=== PATIENT | female | born 1965 | race Caucasian/White ===

== ENCOUNTER → 2017-09-08 13:21 | Outpatient (CLI) | payer BC, SELFPAY ==
[2017-09-08 15:19] LABS: Basophils # 0.1 K/mm3 (0-0.2); Basophils % 0.7 % (0.1-2.0); Eosinophils # 0.5 K/mm3 (0.0-0.4); Eosinophils % 5.2 % (0.1-12.0); Hematocrit 38.1 % (37.0-47.0); Hemoglobin 12.6 g/dL (12.2-16.2); Lymphocytes # 3.9 K/mm3 (0.7-4.5); Lymphocytes % 43.5 K/mm3 (10-50); Mean Corpuscular Hemoglobin 32.3 pg (27.0-31.2); Mean Corpuscular Volume 97.8 fl (81-99); Mean Platelet Volume 8.4 fl (7.4-10.4); Monocytes # 0.5 K/mm3 (0.1-1.0); Neutrophils # 4.1 K/mm3 (1.8-7.8); Neutrophils % 45.6 % (37.0-80.0); Platelet Count 358 K/mm3 (142-424); Red Cell Distribution Width 12.4 % (11.5-17.5)
[2017-09-08 17:26] LABS: Alanine Aminotransferase 33 U/L (12-78); Albumin Level 3.9 gm/dL (3.4-5.0); Albumin/Globulin Ratio 1.1 (1.1-1.8); Alkaline Phosphatase 101 U/L (46-116); Anion Gap 14.1 mEq/L (5-15); Aspartate Amino Transferase 25 U/L (15-37); Bilirubin,Total 0.1 mg/dL (0.2-1.0); Blood Urea Nitrogen 20 mg/dL (7-18); Carbon Dioxide 26 mmol/L (21.0-32.0); Chloride 108 mmol/L (98-107); Creatinine,Serum 0.76 mg/dL (0.55-1.02); Estimated Glomerular Filt Rate 80 ml/min (>60); Ferritin 53 ng/mL (8-388); GFR (African American) 97 ML/MIN (>60); Globulin 3.7 gm/dl (1.3-3.2); Glucose 91 mg/dL (74-106); Potassium 5.1 mmoL/L (3.5-5.1); Sodium 143 mmol/L (136-145); Total Protein,Serum 7.6 gm/dL (6.4-8.2)
[2017-09-09 09:17] LABS: Iron 112 ug/dL (27-159); Iron Saturation 27 % (15-55); UIBC 301 ug/dL (131-425)
[2017-09-09 14:35] LABS: Amphetamine/Metha Screen,Urine Negative ng/mL (<1000); Barbiturates Screen,Urine Negative ng/mL (<200); Benzodiazepines Screen,Urine Negative ng/mL (200); Cannabinoid Screen,Urine Negative ng/mL (<50); Cocaine Screen,Urine Negative ng/g (<300); Methadone Screen,Urine Negative ng/mL (<300); Phencyclidine Screen,Urine Negative ng/mL (<25)
[2017-09-09 14:37] LABS: Opiate Screen,Urine Positive ng/mL (<300)
[2017-09-10 17:16] LABS: Vitamin B12 271 pg/mL (232-1245)
[2017-09-15 11:13] LABS: Codeine Negative (Cutoff=100); Hydrocodone Positive (.); Hydromorphone Positive (.); Morphine Negative (Cutoff=100)
[2017-09-16 12:13] LABS: Opiates Positive (.)
== END ==
PROVIDERS: PCP Emergency Medicine; Referring Provider Anesthesiology; Visit Provider Internal Medicine
DX: D75.89 Other specified diseases of blood and blood-forming organs (principal)
CPT/HCPCS: 36415; 80053; 80305; 80361; 82607; 82728; 82746; 83550; 85025; G0480

== ENCOUNTER → 2017-09-28 13:23 | Outpatient (CLI) | payer BC, SELFPAY ==
[2017-09-28 15:14] LABS: Amphetamine/Metha Screen,Urine Negative ng/mL (<1000); Barbiturates Screen,Urine Negative ng/mL (<200); Benzodiazepines Screen,Urine Negative ng/mL (200); Cannabinoid Screen,Urine Negative ng/mL (<50); Cocaine Screen,Urine Negative ng/g (<300); Methadone Screen,Urine Negative ng/mL (<300); Opiate Screen,Urine Positive ng/mL (<300); Phencyclidine Screen,Urine Negative ng/mL (<25)
[2017-10-10 23:07] LABS: Codeine Negative (Cutoff=100); Hydrocodone Positive (.); Hydromorphone Positive (.); Morphine Negative (Cutoff=100)
[2017-10-11 02:16] LABS: Opiates Positive (.)
== END ==
PROVIDERS: PCP Emergency Medicine; Visit Provider Anesthesiology
DX: Z79.899 Other long term (current) drug therapy (principal)
CPT/HCPCS: 80305; 80361; G0480

== ENCOUNTER → 2017-10-26 11:25 | Outpatient (POV) | payer BC, SELFPAY ==
[2017-10-26 11:39] VITALS: BP 133/79; PULSE 91; RESP 18; TEMP 36.7; O2SAT 95; BMI 28.1
--- NOTE | 2017-10-26 11:58 | HMH.PAINSOAP ---
[facility] Pain Management SOAP Note Subjective:: This patient is a pleasant 52-year-old white female who is been treated in our pain clinic for quite some time for chronic pain secondary to degenerative disc disease of the lumbar spine with lumbar radiculopathy and postlaminectomy syndrome. Patient is currently being medically managed with [place] 10 mg 1 p.o. 3 times daily. She is also taking gabapentin 400 mg 1 p.o. 3 times daily. She is also on diazepam 5 mg as needed. Patient is still working. Patient reports her pain a 10 today. She describes the pain as aching and constant. Medication decreases her pain up to 75%. Patient denies any side effects to this medication. Patient's BABITA [id number] reviewed and appropriate. Patient's UDS was appropriate in the past. ROS General: no recent weight change, no fever, no sleep disturbances Respiratory: no cough, no shortness of air, no recurring pulmonary infections Cardiovascular/Peripheral Vascular: No chest pain, No palpitations, no edema, no shortness of breath. Gastrointestinal: no incontinence, normal bowel movements reported Genitourinary: no incontinence Musculoskeletal: Back pain Psychiatric: normal mood/ affect, anxiety Neurological: [denies weakness in extremities], [denies balance issues] Objective:: Physical Exam General: Alert and oriented x3, no acute distress, pleasant and cooperative, [on room air] Lungs: Resps E/U, Symmetrical chest expansion, Eyes: PERRL Musculoskeletal: Flexion and extension of lumbar spine somewhat guarded secondary to pain, deep tendon reflexes normal, strength in upper and lower extremities [5/5], normal gait noted Neurological: speech clear, shrink pit supervisor equal, no gross sensory deficits Assessment:: Degenerative disc disease of the lumbar spine, lumbar radiculopathy, post laminectomy syndrome Plan:: We will refill this patient's medication given the efficacy of the current regimen. We will refill her [place] 10 mg 1 p.o. 3 times daily and give her 2 months worth of prescriptions. Both her [place] and her urine drug screen have been reviewed and appropriate. Dr. Quiñonez has reviewed her chart and agrees with this. We will see this patient back in 3 months. Patient has been prescribed a controlled substance after being counseled on the medication, medication safety, and possible side effects. BABITA report has been obtained and reviewed prior to prescription and found to be appropriate. Opioid contract was reviewed and signed by the patient, and that they have agreed to all of the terms set forth by our compliance program. This note was dictated using voice recognition software and may contain errors or omissions
--- NOTE | 2017-10-26 12:02 | P.CONS_ITS ---
[facility] Pain Management SOAP Note Subjective:: This patient is a pleasant 52-year-old white female who is been treated in our pain clinic for quite some time for chronic pain secondary to degenerative disc disease of the lumbar spine with lumbar radiculopathy and postlaminectomy syndrome. Patient is currently being medically managed with [place] 10 mg 1 p.o. 3 times daily. She is also taking gabapentin 400 mg 1 p.o. 3 times daily. She is also on diazepam 5 mg as needed. Patient is still working. Patient reports her pain a 10 today. She describes the pain as aching and constant. Medication decreases her pain up to 75%. Patient denies any side effects to this medication. Patient's BABITA [id number] reviewed and appropriate. Patient' s UDS was appropriate in the past. ROS General: no recent weight change, no fever, no sleep disturbances Respiratory: no cough, no shortness of air, no recurring pulmonary infections Cardiovascular/Peripheral Vascular: No chest pain, No palpitations, no edema, no shortness of breath. Gastrointestinal: no incontinence, normal bowel movements reported Genitourinary: no incontinence Musculoskeletal: Back pain Psychiatric: normal mood/ affect, anxiety Neurological: [denies weakness in extremities], [denies balance issues] Objective:: Physical Exam General: Alert and oriented x3, no acute distress, pleasant and cooperative, [ on room air] Lungs: Resps E/U, Symmetrical chest expansion, Eyes: PERRL Musculoskeletal: Flexion and extension of lumbar spine somewhat guarded secondary to pain, deep tendon reflexes normal, strength in upper and lower extremities [5/5], normal gait noted Neurological: speech clear, preparation center coordinator equal, no gross sensory deficits Assessment:: Degenerative disc disease of the lumbar spine, lumbar radiculopathy, post laminectomy syndrome Plan:: We will refill this patient's medication given the efficacy of the current regimen. We will refill her [place] 10 mg 1 p.o. 3 times daily and give her 2 months worth of prescriptions. Both her [place] and her urine drug screen have been reviewed and appropriate. Dr. Quiñonez has reviewed her chart and agrees with this. We will see this patient back in 3 months. Patient has been prescribed a controlled substance after being counseled on the medication, medication safety, and possible side effects. BABITA report has been obtained and reviewed prior to prescription and found to be appropriate. Opioid contract was reviewed and signed by the patient, and that they have agreed to all of the terms set forth by our compliance program. This note was dictated using voice recognition software and may contain errors or omissions
--- NOTE | 2017-10-27 11:50 | PC.PHONENOTE ---
CALLED IN RX FOR GABAPENTIN 400MG TID WITH 2 REFILLS TO [facility]
== END ==
PROVIDERS: Family Provider Emergency Medicine; PCP Emergency Medicine; Visit Provider Clinical Nurse Specialist Family Health
DX: M54.16 Radiculopathy, lumbar region (principal)
CPT/HCPCS: 99212

== ENCOUNTER → 2018-01-04 10:58 | Outpatient (POV) | payer BC, SELFPAY ==
--- NOTE | 2018-01-04 11:49 | HMH.PAINSOAP ---
[facility] Pain Management SOAP Note Subjective:: She is a pleasant 52-year-old white female who we are treating in our pain clinic for chronic pain secondary to degenerative disc disease of the lumbar spine with lumbar radiculopathy and postlaminectomy syndrome. Patient is currently being medically managed with [place] 10 mg 1 p.o. 3 times daily and gabapentin 400 mg 1 p.o. 3 times daily. Patient is still working. Patient reports her pain a 6 out of 10 today. She describes it as aching constant. She states that the medication decreases her pain up to 80%. Patient denies any side effects from medication. Patient's BABITA #[id number] reviewed and appropriate. Patient's UDS is appropriate in the past. ROS General: no recent weight change, no fever, no sleep disturbances Respiratory: no cough, no shortness of air, no recurring pulmonary infections Cardiovascular/Peripheral Vascular: No chest pain, No palpitations, no edema, no shortness of breath. Gastrointestinal: no incontinence, normal bowel movements reported Genitourinary: no incontinence Musculoskeletal: Back pain Psychiatric: normal mood/ affect Neurological: [denies weakness in extremities], [denies balance issues] Objective:: Physical Exam General: Alert and oriented x3, no acute distress, pleasant and cooperative, [on room air] Lungs: Resps E/U, Symmetrical chest expansion, Eyes: PERRL Musculoskeletal: Flexion and extension of lumbar spine somewhat guarded secondary to pain, deep tendon reflexes normal, strength in upper and lower extremities [5/5], normal gait noted Neurological: speech clear, engraver letter equal, no gross sensory deficits Assessment:: Degenerative disc disease of the lumbar spine with lumbar radiculopathy and postlaminectomy syndrome Plan:: We will refill the patient's medication given the efficacy of the current regimen. We will refill her [place] 10 mg 1 p.o. 3 times daily and give HER-2 months worth of the prescription. Both her [place] and urine drug screen have been reviewed and appropriate. I will see her back in 3 months she can supervisor opening and picking her third month in the interim. Dr. Quiñonez has reviewed this chart and agrees with this plan of care. Patient has been prescribed a controlled substance after being counseled on the medication, medication safety, and possible side effects. BABITA report has been obtained and reviewed prior to prescription and found to be appropriate. Opioid contract was reviewed and signed by the patient, and that they have agreed to all of the terms set forth by our compliance program. This note was dictated using voice recognition software and may contain errors or omissions
--- NOTE | 2018-01-04 11:52 | P.CONS_ITS ---
[facility] Pain Management SOAP Note Subjective:: She is a pleasant 52-year-old white female who we are treating in our pain clinic for chronic pain secondary to degenerative disc disease of the lumbar spine with lumbar radiculopathy and postlaminectomy syndrome. Patient is currently being medically managed with [place] 10 mg 1 p.o. 3 times daily and gabapentin 400 mg 1 p.o. 3 times daily. Patient is still working. Patient reports her pain a 6 out of 10 today. She describes it as aching constant. She states that the medication decreases her pain up to 80%. Patient denies any side effects from medication. Patient's BABITA #[id number] reviewed and appropriate. Patient's UDS is appropriate in the past. ROS General: no recent weight change, no fever, no sleep disturbances Respiratory: no cough, no shortness of air, no recurring pulmonary infections Cardiovascular/Peripheral Vascular: No chest pain, No palpitations, no edema, no shortness of breath. Gastrointestinal: no incontinence, normal bowel movements reported Genitourinary: no incontinence Musculoskeletal: Back pain Psychiatric: normal mood/ affect Neurological: [denies weakness in extremities], [denies balance issues] Objective:: Physical Exam General: Alert and oriented x3, no acute distress, pleasant and cooperative, [ on room air] Lungs: Resps E/U, Symmetrical chest expansion, Eyes: PERRL Musculoskeletal: Flexion and extension of lumbar spine somewhat guarded secondary to pain, deep tendon reflexes normal, strength in upper and lower extremities [5/5], normal gait noted Neurological: speech clear, locator specialist equal, no gross sensory deficits Assessment:: Degenerative disc disease of the lumbar spine with lumbar radiculopathy and postlaminectomy syndrome Plan:: We will refill the patient's medication given the efficacy of the current regimen. We will refill her [place] 10 mg 1 p.o. 3 times daily and give HER-2 months worth of the prescription. Both her [place] and urine drug screen have been reviewed and appropriate. I will see her back in 3 months she can tile picker her third month in the interim. Dr. Quiñonez has reviewed this chart and agrees with this plan of care. Patient has been prescribed a controlled substance after being counseled on the medication, medication safety, and possible side effects. BABITA report has been obtained and reviewed prior to prescription and found to be appropriate. Opioid contract was reviewed and signed by the patient, and that they have agreed to all of the terms set forth by our compliance program. This note was dictated using voice recognition software and may contain errors or omissions
[2018-01-04 12:11] VITALS: BP 144/79; PULSE 91; RESP 18; TEMP 36.7; O2SAT 98; BMI 28.1
--- NOTE | 2018-02-15 07:57 | PC.PHONENOTE ---
02/14/18-called in Rx for Gabapentin 400mg TID with 2 refills.
== END ==
PROVIDERS: Family Provider Emergency Medicine; PCP Physician Assistant; Visit Provider Clinical Nurse Specialist Family Health
DX: M54.16 Radiculopathy, lumbar region (principal)
CPT/HCPCS: 99212

== ENCOUNTER → 2018-04-11 10:16 | Outpatient (POV) | payer BC, SELFPAY ==
[2018-04-11 11:02] VITALS: BP 139/82; PULSE 83; RESP 18; O2SAT 98; BMI 28.6
[2018-04-11 13:00] LABS: Amphetamine/Metha Screen,Urine Negative ng/mL (<1000); Barbiturates Screen,Urine Negative ng/mL (<200); Benzodiazepines Screen,Urine Negative ng/mL (<200); Cannabinoid Screen,Urine Negative ng/mL (<50); Cocaine Screen,Urine Negative ng/mL (<300); Methadone Screen,Urine Negative ng/mL (<300); Opiate Screen,Urine Positive ng/mL (<300); Phencyclidine Screen,Urine Negative ng/mL (<25)
--- NOTE | 2018-04-11 13:52 | HMH.PAINSOAP ---
[facility] Pain Management SOAP Note Subjective:: Patient is a pleasant 52-year-old white female who presents today for medication refills. Patient is currently being treated for pain secondary to degenerative disc disease lumbar spine with lumbar radiculopathy and postlaminectomy syndrome. Patient is currently being medically managed with [place] 10 mg 1 p.o. 3 times daily. Patient is also on gabapentin 400 mg 1 p.o. 3 times daily. Patient is still working and doing well she rates her pain a 4 out of 10 today. She describes it as aching and constant. She states that her medication helps up to 70%. Patient denies any side effects. Patient's BABITA #[id number] reviewed and appropriate. Patient has had a UDS in the past that is appropriate. ROS General: no recent weight change, no fever, no sleep disturbances Respiratory: no cough, no shortness of air, no recurring pulmonary infections Cardiovascular/Peripheral Vascular: No chest pain, No palpitations, no edema, no shortness of breath. Gastrointestinal: no incontinence, normal bowel movements reported Genitourinary: no incontinence Musculoskeletal: Back pain, leg pain Psychiatric: normal mood/ affect Neurological: [denies weakness in extremities], [denies balance issues] Objective:: Physical Exam General: Alert and oriented x3, no acute distress, pleasant and cooperative, [on room air] Lungs: Resps E/U, Symmetrical chest expansion, Eyes: PERRL Musculoskeletal: Flexion and extension of lumbar spine somewhat guarded secondary to pain, deep tendon reflexes normal, strength in upper and lower extremities [5/5], slightly antalgic gait noted Neurological: speech clear, roll plugger machine operator equal, no gross sensory deficits Assessment:: Degenerative disc disease of lumbar spine with lumbar radiculopathy, postlaminectomy syndrome Plan:: We will refill the patient's medication given the efficacy of her current regimen. We will give her 2 prescriptions for [place] 10 mg 1 p.o. 3 times daily. Patient can follow-up in 3 months and pear picker her third month in the interim. Dr. Quiñonez is reviewed this chart and agrees with this plan of care. Patient has been prescribed a controlled substance after being counseled on the medication, medication safety, and possible side effects. BABITA report has been obtained and reviewed prior to prescription and found to be appropriate. Opioid contract was reviewed and signed by the patient, and that they have agreed to all of the terms set forth by our compliance program. This note was dictated using voice recognition software and may contain errors or omissions
--- NOTE | 2018-04-11 13:55 | P.CONS_ITS ---
[facility] Pain Management SOAP Note Subjective:: Patient is a pleasant 52-year-old white female who presents today for medication refills. Patient is currently being treated for pain secondary to degenerative disc disease lumbar spine with lumbar radiculopathy and postlaminectomy syndrome. Patient is currently being medically managed with [place] 10 mg 1 p.o. 3 times daily. Patient is also on gabapentin 400 mg 1 p.o. 3 times daily. Patient is still working and doing well she rates her pain a 4 out of 10 today. She describes it as aching and constant. She states that her medication helps up to 70%. Patient denies any side effects. Patient's BABITA #[id number] reviewed and appropriate. Patient has had a UDS in the past that is appropriate. ROS General: no recent weight change, no fever, no sleep disturbances Respiratory: no cough, no shortness of air, no recurring pulmonary infections Cardiovascular/Peripheral Vascular: No chest pain, No palpitations, no edema, no shortness of breath. Gastrointestinal: no incontinence, normal bowel movements reported Genitourinary: no incontinence Musculoskeletal: Back pain, leg pain Psychiatric: normal mood/ affect Neurological: [denies weakness in extremities], [denies balance issues] Objective:: Physical Exam General: Alert and oriented x3, no acute distress, pleasant and cooperative, [ on room air] Lungs: Resps E/U, Symmetrical chest expansion, Eyes: PERRL Musculoskeletal: Flexion and extension of lumbar spine somewhat guarded secondary to pain, deep tendon reflexes normal, strength in upper and lower extremities [5/5], slightly antalgic gait noted Neurological: speech clear, process engineering manager equal, no gross sensory deficits Assessment:: Degenerative disc disease of lumbar spine with lumbar radiculopathy, postlaminectomy syndrome Plan:: We will refill the patient's medication given the efficacy of her current regimen. We will give her 2 prescriptions for [place] 10 mg 1 p.o. 3 times daily. Patient can follow-up in 3 months and pickle maker her third month in the interim. Dr. Quiñonez is reviewed this chart and agrees with this plan of care. Patient has been prescribed a controlled substance after being counseled on the medication, medication safety, and possible side effects. BABITA report has been obtained and reviewed prior to prescription and found to be appropriate. Opioid contract was reviewed and signed by the patient, and that they have agreed to all of the terms set forth by our compliance program. This note was dictated using voice recognition software and may contain errors or omissions
[2018-04-17 18:07] LABS: Codeine Negative (Cutoff=100); Hydrocodone Positive (.); Hydromorphone Positive (.); Morphine Negative (Cutoff=100)
[2018-04-19 08:27] LABS: Opiates Positive (.)
== END ==
PROVIDERS: Family Provider Emergency Medicine; PCP Physician Assistant; Visit Provider Clinical Nurse Specialist Family Health
DX: M54.16 Radiculopathy, lumbar region (principal); Z79.899 Other long term (current) drug therapy; M96.1 Postlaminectomy syndrome, not elsewhere classified
CPT/HCPCS: 80305; 80361; 80365; 99202; 99212; G0480

== ENCOUNTER → 2018-06-14 09:51 | Outpatient (REF) | payer BC, SELFPAY ==
[2018-06-14 13:53] LABS: Amphetamine/Metha Screen,Urine Negative ng/mL (<1000); Barbiturates Screen,Urine Negative ng/mL (<200); Benzodiazepines Screen,Urine Negative ng/mL (<200); Cannabinoid Screen,Urine Negative ng/mL (<50); Cocaine Screen,Urine Negative ng/mL (<300); Methadone Screen,Urine Negative ng/mL (<300); Opiate Screen,Urine Positive ng/mL (<300); Phencyclidine Screen,Urine Negative ng/mL (<25)
[2018-06-14 19:45] LABS: Basophils # 0.1 K/mm3 (0-0.2); Basophils % 0.6 % (0.1-2.0); Eosinophils # 0.3 K/mm3 (0.0-0.4); Eosinophils % 3.8 % (0.1-12.0); Hematocrit 38.2 % (37.0-47.0); Hemoglobin 12.4 g/dL (12.2-16.2); Lymphocytes # 3.6 K/mm3 (0.7-4.5); Lymphocytes % 44.6 K/mm3 (10-50); Mean Corpuscular HGB Conc 32.4 g/dL (31.8-35.4); Mean Corpuscular Hemoglobin 32.2 pg (27.0-31.2); Mean Corpuscular Volume 99.5 fl (81-99); Mean Platelet Volume 9.2 fl (7.4-10.4); Monocytes # 0.5 K/mm3 (0.1-1.0); Monocytes % 5.9 % (1.7-9.3); Neutrophils # 3.7 K/mm3 (1.8-7.8); Platelet Count 424 K/mm3 (142-424); Red Blood Count 3.84 M/mm3 (4.20-5.40); Red Cell Distribution Width 12.6 % (11.5-17.5); White Blood Count 8.1 K/mm3 (4.8-10.8)
[2018-06-14 20:28] LABS: Alanine Aminotransferase 35 U/L (12-78); Albumin Level 4.1 gm/dL (3.4-5.0); Albumin/Globulin Ratio 1.1 (1.1-1.8); Alkaline Phosphatase 106 U/L (46-116); Anion Gap 14.6 mEq/L (5-15); Aspartate Amino Transferase 26 U/L (15-37); Bilirubin,Total 0.3 mg/dL (0.2-1.0); Blood Urea Nitrogen 14 mg/dL (7-18); Calcium 9.6 mg/dL (8.5-10.1); Carbon Dioxide 25 mmol/L (21.0-32.0); Chloride 104 mmol/L (98-107); Chol/HDL Ratio 3.4 (1-3.5); Cholesterol 189 mg/dL (140-200); Creatinine,Serum 0.78 mg/dL (0.55-1.02); Estimated Glomerular Filt Rate 78 ml/min (>60); GFR (African American) 94 ML/MIN (>60); Gamma Glutamyl Transpeptidase 37 U/L (5-55); Globulin 3.8 gm/dl (1.3-3.2); Glucose 95 mg/dL (74-106); HDL Cholesterol 55 mg/dL (29-89); LDL Cholesterol 116 mg/dL (0-130); Potassium 4.6 mmoL/L (3.5-5.1); Sodium 139 mmol/L (136-145); T4 (Thyroxine) 8.9 ug/dl (4.7-13.3); Thyroid Stimulating Hormone 3.28 uIU/ml (0.358-3.740); Total Protein,Serum 7.9 gm/dL (6.4-8.2); Triglycerides 91 mg/dL (30-200); VLDL Cholesterol 18 mg/dL (0-40)
[2018-06-16 08:31] LABS: Hep A Ab, IgM Negative (Negative); Hepatitis B Core Antibody IgM Negative (Negative); Hepatitis B Surface Antigen Negative (Negative)
[2018-06-16 10:16] LABS: Hepatitis C Antibody <0.1 s/co ratio (0.0-0.9)
== END ==
LOC: LAB 09:51
PROVIDERS: Visit Provider Physician Assistant
DX: Z79.899 Other long term (current) drug therapy (principal); R16.0 Hepatomegaly, not elsewhere classified
CPT/HCPCS: 80053; 80061; 80074; 80305; 82977; 84436; 84443; 85025

== ENCOUNTER → 2018-06-22 08:07 | Outpatient (CLI) | payer BC, SELFPAY ==
--- NOTE | 2018-06-22 08:09 | US_ITS ---
US abdomen complete HISTORY: Right upper quadrant pain hernia ITS.REASON: RUQ pain (no gallbladder - hepatomegaly) ORDERING PHYSICIAN: FAINA Prince PATIENT AGE: 52 years COMPARISON: None FINDINGS: PANCREAS:Unremarkable. No obvious mass or abnormal fluid collection. No ductal dilatation LIVER:No focal liver lesions demonstrated. Homogeneous echogenicity. No intrahepatic biliary ductal dilatation evident. There is some increased echogenicity of the liver consistent with hepatic steatosis. There is appropriate directional blood flow within a nondilated portal vein, bile duct is normal in caliber at 5 mm RIGHT KIDNEY:Unremarkable. Normal size and echogenicity. No hydronephrosis LEFT KIDNEY:Unremarkable. No hydronephrosis. Normal size and echogenicity. GALLBLADDER: Status post cholecystectomy. AORTA:No evidence of aneurysmal dilatation. SPLEEN:Unremarkable. Normal size and echogenicity ASCITES:None demonstrated. IMPRESSION: 1. Status post cholecystectomy. No ductal dilatation. 2. Fatty liver
== END ==
PROVIDERS: PCP Physician Assistant; Visit Provider Physician Assistant
DX: R16.0 Hepatomegaly, not elsewhere classified (principal)
CPT/HCPCS: 76700

== ENCOUNTER → 2018-07-04 08:57 | Outpatient (POV) | payer BC, SELFPAY ==
--- NOTE | 2018-07-04 09:14 | HMH.PAINSOAP ---
[facility] Pain Management SOAP Note Subjective:: Patient is a pleasant 52-year-old white female who presents today for medication refills. Patient is currently being treated for pain secondary to degenerative disc disease lumbar spine with lumbar radiculopathy and postlaminectomy syndrome. Is currently being medically managed with [place] 10 mg 1 p.o. 3 times daily and gabapentin 400 mg 1 p.o. 3 times daily. Patient is still working and doing well she rates her pain a 6 out of 10 today. She states is worse due to the weather. Patient states the medication helps up to 70%. Patient denies any side effects. Patient's BABITA #[id number] reviewed and appropriate. Patient's urine drug screen has been appropriate. ROS General: no recent weight change, no fever, no sleep disturbances Respiratory: no cough, no shortness of air, no recurring pulmonary infections Cardiovascular/Peripheral Vascular: No chest pain, No palpitations, no edema, no shortness of breath. Gastrointestinal: no incontinence, normal bowel movements reported Genitourinary: no incontinence Musculoskeletal: Back pain, leg pain Psychiatric: normal mood/ affect Neurological: [denies weakness in extremities], [denies balance issues] Objective:: Physical Exam General: Alert and oriented x3, no acute distress, pleasant and cooperative, [on room air] Lungs: Resps E/U, Symmetrical chest expansion, Eyes: PERRL Musculoskeletal: Flexion and extension of lumbar spine somewhat guarded secondary to pain, deep tendon reflexes normal, strength in upper and lower extremities [5/5], antalgic gait noted Neurological: speech clear, technical asst equal, no gross sensory deficits Assessment:: Degenerative disc disease lumbar spine with lumbar radiculopathy, post laminectomy syndrome Plan:: We will refill the patient's medication given the efficacy of her current regimen. We will give her 2 prescriptions of [place] 10 mg 1 p.o. 3 times daily. Patient can follow-up in 3 months and pick and shovel worker her third month in the interim. Dr. Quiñonez is reviewed this chart and agrees with this plan of care Patient has been prescribed a controlled substance after being counseled on the medication, medication safety, and possible side effects. BABITA report has been obtained and reviewed prior to prescription and found to be appropriate. Opioid contract was reviewed and signed by the patient, and that they have agreed to all of the terms set forth by our compliance program. This note was dictated using voice recognition software and may contain errors or omissions
--- NOTE | 2018-07-04 09:17 | P.CONS_ITS ---
[facility] Pain Management SOAP Note Subjective:: Patient is a pleasant 52-year-old white female who presents today for medication refills. Patient is currently being treated for pain secondary to degenerative disc disease lumbar spine with lumbar radiculopathy and postlaminectomy syndrome. Is currently being medically managed with [place] 10 mg 1 p.o. 3 times daily and gabapentin 400 mg 1 p.o. 3 times daily. Patient is still working and doing well she rates her pain a 6 out of 10 today. She states is worse due to the weather. Patient states the medication helps up to 70%. Patient denies any side effects. Patient's BABITA #[id number] reviewed and appropriate. Patient's urine drug screen has been appropriate. ROS General: no recent weight change, no fever, no sleep disturbances Respiratory: no cough, no shortness of air, no recurring pulmonary infections Cardiovascular/Peripheral Vascular: No chest pain, No palpitations, no edema, no shortness of breath. Gastrointestinal: no incontinence, normal bowel movements reported Genitourinary: no incontinence Musculoskeletal: Back pain, leg pain Psychiatric: normal mood/ affect Neurological: [denies weakness in extremities], [denies balance issues] Objective:: Physical Exam General: Alert and oriented x3, no acute distress, pleasant and cooperative, [on room air] Lungs: Resps E/U, Symmetrical chest expansion, Eyes: PERRL Musculoskeletal: Flexion and extension of lumbar spine somewhat guarded secondary to pain, deep tendon reflexes normal, strength in upper and lower extremities [5/5], antalgic gait noted Neurological: speech clear, yarn rewinder equal, no gross sensory deficits Assessment:: Degenerative disc disease lumbar spine with lumbar radiculopathy, post laminectomy syndrome Plan:: We will refill the patient's medication given the efficacy of her current regimen. We will give her 2 prescriptions of [place] 10 mg 1 p.o. 3 times daily. Patient can follow-up in 3 months and picking crew supervisor her third month in the interim. Dr. Quiñonez is reviewed this chart and agrees with this plan of care Patient has been prescribed a controlled substance after being counseled on the medication, medication safety, and possible side effects. BABITA report has been obtained and reviewed prior to prescription and found to be appropriate. Opioid contract was reviewed and signed by the patient, and that they have agreed to all of the terms set forth by our compliance program. This note was dictated using voice recognition software and may contain errors or omissions
[2018-07-04 12:05] VITALS: BP 168/83; PULSE 94; RESP 18; O2SAT 98; BMI 29.0
== END ==
PROVIDERS: PCP Emergency Medicine; Visit Provider Clinical Nurse Specialist Family Health
DX: M51.16 Intervertebral disc disorders with radiculopathy, lumbar region (principal); M96.1 Postlaminectomy syndrome, not elsewhere classified
CPT/HCPCS: 99213

== ENCOUNTER → 2018-07-19 09:02 | Outpatient (POV) | payer BC, SELFPAY ==
[2018-07-19 09:10] VITALS: BP 148/83; PULSE 96; RESP 18; O2SAT 98; BMI 29.0
--- NOTE | 2018-07-19 09:18 | HMH.PAINSOAP ---
[facility] Pain Management SOAP Note Subjective:: Is a pleasant 53-year-old white female who presents today for follow-up. Patient was recently seen however since her last visit she has had an extreme change in pain. Her low back pain has worsened and it is now radiating into the legs. Patient is having increased difficulty functioning. Patient is currently on [place] and gabapentin however it is not helping manage her pain. She rates her pain today an 8 out of 10. ROS General: no recent weight change, no fever, no sleep disturbances Respiratory: no cough, no shortness of air, no recurring pulmonary infections Cardiovascular/Peripheral Vascular: No chest pain, No palpitations, no edema, no shortness of breath. Gastrointestinal: no incontinence, normal bowel movements reported Genitourinary: no incontinence Musculoskeletal: Back pain, leg pain Psychiatric: normal mood/ affect Neurological: Weakness in bilateral lower extremities at times, [denies balance issues] Objective:: Physical Exam General: Alert and oriented x3, no acute distress, pleasant and cooperative, [on room air] Lungs: Resps E/U, Symmetrical chest expansion, Eyes: PERRL Musculoskeletal: Flexion and extension of lumbar spine somewhat guarded secondary to pain, deep tendon reflexes normal, strength in upper and lower extremities [5/5], [abnormal gait noted] Neurological: speech clear, instrumentation technician equal, no gross sensory deficits Assessment:: Degenerative disc disease lumbar spine with lumbar radiculopathy and postlaminectomy syndrome Plan:: We will schedule an MRI for the patient to help discern any new pathology. We will also call her prednisone 20 mg 1 p.o. twice daily for 5 days. I will follow-up with her after her MRI This note was dictated using voice recognition software and may contain errors or omissions
--- NOTE | 2018-07-19 09:21 | P.CONS_ITS ---
[facility] Pain Management SOAP Note Subjective:: Is a pleasant 53-year-old white female who presents today for follow-up. Patient was recently seen however since her last visit she has had an extreme change in pain. Her low back pain has worsened and it is now radiating into the legs. Patient is having increased difficulty functioning. Patient is currently on [place] and gabapentin however it is not helping manage her pain. She rates her pain today an 8 out of 10. ROS General: no recent weight change, no fever, no sleep disturbances Respiratory: no cough, no shortness of air, no recurring pulmonary infections Cardiovascular/Peripheral Vascular: No chest pain, No palpitations, no edema, no shortness of breath. Gastrointestinal: no incontinence, normal bowel movements reported Genitourinary: no incontinence Musculoskeletal: Back pain, leg pain Psychiatric: normal mood/ affect Neurological: Weakness in bilateral lower extremities at times, [denies balance issues] Objective:: Physical Exam General: Alert and oriented x3, no acute distress, pleasant and cooperative, [on room air] Lungs: Resps E/U, Symmetrical chest expansion, Eyes: PERRL Musculoskeletal: Flexion and extension of lumbar spine somewhat guarded secondary to pain, deep tendon reflexes normal, strength in upper and lower extremities [5/5], [abnormal gait noted] Neurological: speech clear, end stapler equal, no gross sensory deficits Assessment:: Degenerative disc disease lumbar spine with lumbar radiculopathy and postlaminectomy syndrome Plan:: We will schedule an MRI for the patient to help discern any new pathology. We will also call her prednisone 20 mg 1 p.o. twice daily for 5 days. I will follow-up with her after her MRI This note was dictated using voice recognition software and may contain errors or omissions
== END ==
PROVIDERS: PCP Emergency Medicine; Visit Provider Clinical Nurse Specialist Family Health
DX: M51.16 Intervertebral disc disorders with radiculopathy, lumbar region (principal); M96.1 Postlaminectomy syndrome, not elsewhere classified
CPT/HCPCS: 99213

== ENCOUNTER → 2018-07-26 07:44 | Outpatient (CLI) | payer BC, SELFPAY ==
--- NOTE | 2018-07-26 07:50 | MR_ITS ---
MR lumbar spine wo con, MR 3-d myelogram/MRCP HISTORY: Low back pain and bilateral leg pain and burning HX back surgery in 2000. Bilateral leg pain. Burning sensation in back. Symptoms X2wks. No trauma. ITS.REASON: BACK PAIN ORDERING PHYSICIAN: Terrie Edwards PATIENT AGE: 53 years Comparison: 04-11-2009 TECHNIQUE: Standard multiplanar multiecho sequences are performed without contrast. 3-D MIP and myelographic images are also rendered and reviewed FINDINGS: There has been prior fusion posteriorly at L4 and L5 with interpedicular screws and moderate degree of artifact at those levels. There is normal alignment. Spinal cord ends at the L1 level. Degenerative disc disease T11-T12 with minimal bulging disc. T12-L1: Mild degenerative disc disease. L1-L2: Mild disc desiccation. L2-L3: Unremarkable. L3-L4: Bulging disc along with facet and ligamentum flavum hypertrophy. There is severe bilateral lateral recess narrowing with moderate bilateral foraminal narrowing. There is canal stenosis at this level with canal measuring 8 mm. L4-L5: Artifact from the prior surgery. Postsurgical changes L5-S1: Bulging disc. Facet and ligamentum flavum hypertrophy with moderate right and severe left-sided foraminal narrowing from facet hypertrophic changes. No extruded herniated disc evident. IMPRESSION: 1. Postsurgical changes at L4-L5 with artifact at that level from prior fusion 2. L3-L4: Bulging disc along with facet and ligamentum flavum hypertrophy. There is severe bilateral lateral recess narrowing with moderate bilateral foraminal narrowing. There is canal stenosis at this level with canal measuring 8 mm 3. Bulging disc at L5-S1 with facet and ligamentum flavum hypertrophy with moderate right and severe left-sided foraminal narrowing from facet hypertrophic changes
== END ==
PROVIDERS: PCP Emergency Medicine; Visit Provider Clinical Nurse Specialist Family Health
DX: M54.5 Low back pain (principal); M79.604 Pain in right leg; M79.605 Pain in left leg
CPT/HCPCS: 72148; 76376

== ENCOUNTER → 2018-08-01 09:38 | Outpatient (POV) | payer BC, SELFPAY ==
[2018-08-01 09:49] VITALS: BP 145/77; PULSE 92; RESP 18; O2SAT 98; BMI 29.0
--- NOTE | 2018-08-01 10:24 | P.CONS_ITS ---
[facility] Pain Management SOAP Note Subjective:: Patient is a pleasant 53-year-old white female who presents today for follow-up after new MRI. Patient does have some postsurgical changes along with a bulging disc at L3-L4 L5-S1. Patient and I discussed therapies. Patient Is being medically managed with this however she is open to an epidural injection which I do believe would be beneficial for her. Patient states that she has worsening pain when she standing for long periods of time or sitting for long periods of time. Patient rates her pain today a 6 out of 10. Patient has had epidurals in the past she does state that they did help. ROS General: no recent weight change, no fever, no sleep disturbances Respiratory: no cough, no shortness of air, no recurring pulmonary infections Cardiovascular/Peripheral Vascular: No chest pain, No palpitations, no edema, no shortness of breath. Gastrointestinal: no incontinence, normal bowel movements reported Genitourinary: no incontinence Musculoskeletal: Back pain, leg pain Psychiatric: normal mood/ affect Neurological: [denies weakness in extremities], [denies balance issues] Objective:: Physical Exam General: Alert and oriented x3, no acute distress, pleasant and cooperative, [on room air] Lungs: Resps E/U, Symmetrical chest expansion, Eyes: PERRL Musculoskeletal: Flexion and extension of lumbar spine somewhat guarded secondary to pain, deep tendon reflexes normal, strength in upper and lower extremities [5/5], slightly antalgic gait noted, positive straight leg raise test on the right side at 30 degrees. Neurological: speech clear, head counselor equal, no gross sensory deficits Assessment:: Postlaminectomy syndrome, degenerative disc disease lumbar spine with lumbar radiculopathy Plan:: We will schedule an L5-S1 lumbar epidural steroid injection. Patient is continuing a home stretching program. Patient is on anti-inflammatories. I will follow-up with her after her injection. Patient is not on any anticoagulation therapy. This note was dictated using voice recognition software and may contain errors or omissions
== END ==
PROVIDERS: PCP Emergency Medicine; Visit Provider Clinical Nurse Specialist Family Health
DX: M96.1 Postlaminectomy syndrome, not elsewhere classified (principal); M51.16 Intervertebral disc disorders with radiculopathy, lumbar region
CPT/HCPCS: 99213

== ENCOUNTER → 2018-09-14 10:27 | Outpatient (CLI) | payer BC, SELFPAY ==
[2018-09-14 13:06] LABS: Amphetamine/Metha Screen,Urine Negative ng/mL (<1000); Barbiturates Screen,Urine Negative ng/mL (<200); Benzodiazepines Screen,Urine Negative ng/mL (<200); Cannabinoid Screen,Urine Negative ng/mL (<50); Cocaine Screen,Urine Negative ng/mL (<300); Methadone Screen,Urine Negative ng/mL (<300); Opiate Screen,Urine Positive ng/mL (<300); Phencyclidine Screen,Urine Negative ng/mL (<25)
[2018-09-19 07:08] LABS: Codeine Negative (Cutoff=100); Hydrocodone Positive (.); Hydromorphone Positive (.); Morphine Negative (Cutoff=100)
[2018-09-19 08:22] LABS: Opiates Positive (.)
== END ==
PROVIDERS: Visit Provider Clinical Nurse Specialist Family Health
DX: Z79.899 Other long term (current) drug therapy (principal)
CPT/HCPCS: 80305; 80361; 80365; G0480

== ENCOUNTER → 2018-09-20 09:00 | Outpatient (POV) | payer BC, SELFPAY ==
[2018-09-20 09:40] VITALS: BP 164/85; PULSE 91; RESP 18; O2SAT 99; BMI 29.1
--- NOTE | 2018-09-20 09:48 | HMH.PAINSOAP ---
[facility] Pain Management SOAP Note Subjective:: Patient is a pleasant 53-year-old white female who we are treating for low back pain with lumbar radiculopathy. She is following up with lumbar epidural steroid injection. Patient is doing well rating her pain a 4 out of 10. Patient is continuing to work. She is medically managed with us however she is not due prescriptions today. ROS General: no recent weight change, no fever, no sleep disturbances Respiratory: no cough, no shortness of air, no recurring pulmonary infections Cardiovascular/Peripheral Vascular: No chest pain, No palpitations, no edema, no shortness of breath. Gastrointestinal: no incontinence, normal bowel movements reported Genitourinary: no incontinence Musculoskeletal: Back pain Psychiatric: normal mood/ affect Neurological: [denies weakness in extremities], [denies balance issues] Objective:: Physical Exam General: Alert and oriented x3, no acute distress, pleasant and cooperative, [on room air] Lungs: Resps E/U, Symmetrical chest expansion, Eyes: PERRL Musculoskeletal: Flexion and extension of lumbar spine somewhat guarded secondary to pain, deep tendon reflexes normal, strength in upper and lower extremities [5/5], [abnormal gait noted] Neurological: speech clear, scenic arts supervisor equal, no gross sensory deficits Assessment:: degenerative of disc disease lumbar spine with lumbar radiculopathy symptoms and postlaminectomy syndrome of lumbar spine Plan:: We will see the patient back at her next medication refill appointment. Patient's been instructed to call the office if she has any issues prior to next appointment. Dr. Quiñonez has reviewed this note and agrees with this plan of care. This note was dictated using voice recognition software and may contain errors or omissions
--- NOTE | 2018-09-20 09:55 | P.CONS_ITS ---
[facility] Pain Management SOAP Note Subjective:: Patient is a pleasant 53-year-old white female who we are treating for low back pain with lumbar radiculopathy. She is following up with lumbar epidural steroid injection. Patient is doing well rating her pain a 4 out of 10. Patient is continuing to work. She is medically managed with us however she is not due prescriptions today. ROS General: no recent weight change, no fever, no sleep disturbances Respiratory: no cough, no shortness of air, no recurring pulmonary infections Cardiovascular/Peripheral Vascular: No chest pain, No palpitations, no edema, no shortness of breath. Gastrointestinal: no incontinence, normal bowel movements reported Genitourinary: no incontinence Musculoskeletal: Back pain Psychiatric: normal mood/ affect Neurological: [denies weakness in extremities], [denies balance issues] Objective:: Physical Exam General: Alert and oriented x3, no acute distress, pleasant and cooperative, [on room air] Lungs: Resps E/U, Symmetrical chest expansion, Eyes: PERRL Musculoskeletal: Flexion and extension of lumbar spine somewhat guarded secondary to pain, deep tendon reflexes normal, strength in upper and lower extremities [5/5], [abnormal gait noted] Neurological: speech clear, criminal justice professor equal, no gross sensory deficits Assessment:: degenerative of disc disease lumbar spine with lumbar radiculopathy symptoms and postlaminectomy syndrome of lumbar spine Plan:: We will see the patient back at her next medication refill appointment. Patient's been instructed to call the office if she has any issues prior to next appointment. Dr. Quiñonez has reviewed this note and agrees with this plan of care. This note was dictated using voice recognition software and may contain errors or omissions
== END ==
PROVIDERS: PCP Emergency Medicine; Visit Provider Clinical Nurse Specialist Family Health
DX: M51.16 Intervertebral disc disorders with radiculopathy, lumbar region (principal); M96.1 Postlaminectomy syndrome, not elsewhere classified
CPT/HCPCS: 99213

== ENCOUNTER → 2018-11-03 13:19 | Outpatient (CLI) | payer BC, SELFPAY ==
[2018-11-03 14:06] LABS: Basophils # 0.1 K/mm3 (0-0.2); Basophils % 0.8 % (0.1-2.0); Eosinophils # 0.4 K/mm3 (0.0-0.4); Eosinophils % 3.6 % (0.1-12.0); Hematocrit 40.1 % (37.0-47.0); Hemoglobin 13.3 g/dL (12.2-16.2); Lymphocytes # 4.2 K/mm3 (0.7-4.5); Mean Corpuscular HGB Conc 33.2 g/dL (31.8-35.4); Mean Corpuscular Hemoglobin 32.6 pg (27.0-31.2); Mean Corpuscular Volume 98.2 fl (81-99); Mean Platelet Volume 8.5 fl (7.4-10.4); Monocytes # 0.5 K/mm3 (0.1-1.0); Monocytes % 4.8 % (1.7-9.3); Neutrophils # 4.8 K/mm3 (1.8-7.8); Neutrophils % 48.8 % (37.0-80.0); Platelet Count 372 K/mm3 (142-424); Red Blood Count 4.09 M/mm3 (4.20-5.40); Red Cell Distribution Width 12.4 % (11.5-17.5); White Blood Count 9.9 K/mm3 (4.8-10.8)
[2018-11-03 14:09] LABS: Alanine Aminotransferase 34 U/L (12-78); Albumin Level 3.9 gm/dL (3.4-5.0); Alkaline Phosphatase 105 U/L (46-116); Anion Gap 13.7 mEq/L (5-15); Aspartate Amino Transferase 16 U/L (15-37); Bilirubin,Total 0.2 mg/dL (0.2-1.0); Blood Urea Nitrogen 18 mg/dL (7-18); Calcium 9.4 mg/dL (8.5-10.1); Carbon Dioxide 26 mmol/L (21.0-32.0); Chloride 105 mmol/L (98-107); Chol/HDL Ratio 4.3 (1-3.5); Cholesterol 225 mg/dL (140-200); Creatinine,Serum 0.87 mg/dL (0.55-1.02); Estimated Glomerular Filt Rate 68 ml/min (>60); GFR (African American) 82 ML/MIN (>60); Globulin 3.9 gm/dl (1.3-3.2); Glucose 95 mg/dL (74-106); HDL Cholesterol 52 mg/dL (29-89); LDL Cholesterol 142 mg/dL (0-130); Potassium 4.7 mmoL/L (3.5-5.1); Sodium 140 mmol/L (136-145); T4 (Thyroxine) 9.4 ug/dl (4.7-13.3); Thyroid Stimulating Hormone 3.91 uIU/ml (0.358-3.740); Total Protein,Serum 7.8 gm/dL (6.4-8.2); Triglycerides 155 mg/dL (30-200); VLDL Cholesterol 31 mg/dL (0-40)
[2018-11-05 10:14] LABS: Vitamin D 25 Hydroxy 44.2 ng/mL (30.0-100.0)
== END ==
PROVIDERS: Visit Provider Physician Assistant
DX: I10 Essential (primary) hypertension (principal); E78.5 Hyperlipidemia, unspecified
CPT/HCPCS: 80053; 80061; 82652; 84436; 84443; 85025

== ENCOUNTER → 2018-11-21 09:10 | Outpatient (POV) | payer BC, SELFPAY ==
[2018-11-21 09:23] VITALS: BP 148/82; PULSE 95; RESP 18; O2SAT 98; BMI 29.7
--- NOTE | 2018-11-21 14:08 | HMH.PAINSOAP ---
[facility] Pain Management SOAP Note Subjective:: Patient is a pleasant 53-year-old white female who presents today for follow-up. Patient has been receiving [place] 10 mg 1 p.o. 3 times daily from our office. Patient was recently called for a pill count and though the number of pills was correct they were from a different java development team lead than her pharmacy carries. She rates her pain today a 4 out of 10. Patient and I discussed this. Patient will only be able to receive injections from our office moving forward. Patient states that she let the pills to her sister while her sister was awaiting a prescription and then replaced it with her sister's pills. ROS General: no recent weight change, no fever, no sleep disturbances Respiratory: no cough, no shortness of air, no recurring pulmonary infections Cardiovascular/Peripheral Vascular: No chest pain, No palpitations, no edema, no shortness of breath. Gastrointestinal: no incontinence, normal bowel movements reported Genitourinary: no incontinence Musculoskeletal: Back pain, leg pain Psychiatric: normal mood/ affect Neurological: [denies weakness in extremities], [denies balance issues] Objective:: Physical Exam General: Alert and oriented x3, no acute distress, pleasant and cooperative, [on room air] Lungs: Resps E/U, Symmetrical chest expansion, Eyes: PERRL Musculoskeletal: Flexion and extension of Lumbar spine somewhat guarded secondary to pain, deep tendon reflexes normal, strength in upper and lower extremities [5/5], [abnormal gait noted] Neurological: speech clear, monitoring specialist equal, no gross sensory deficits Assessment:: degenerative disc disease with radiculopathy Plan:: Patient will no longer be able to receive narcotic medication from this will give her 1 month and she will be injections only from this time on. Dr. Quiñonez has reviewed this note and agrees with this plan of care. This note was dictated using voice recognition software and may contain errors or omissions
--- NOTE | 2018-11-21 14:12 | P.CONS_ITS ---
[facility] Pain Management SOAP Note Subjective:: Patient is a pleasant 53-year-old white female who presents today for follow-up. Patient has been receiving [place] 10 mg 1 p.o. 3 times daily from our office. Patient was recently called for a pill count and though the number of pills was correct they were from a different stamp presser than her pharmacy carries. She rates her pain today a 4 out of 10. Patient and I discussed this. Patient will only be able to receive injections from our office moving forward. Patient states that she let the pills to her sister while her sister was awaiting a prescription and then replaced it with her sister's pills. ROS General: no recent weight change, no fever, no sleep disturbances Respiratory: no cough, no shortness of air, no recurring pulmonary infections Cardiovascular/Peripheral Vascular: No chest pain, No palpitations, no edema, no shortness of breath. Gastrointestinal: no incontinence, normal bowel movements reported Genitourinary: no incontinence Musculoskeletal: Back pain, leg pain Psychiatric: normal mood/ affect Neurological: [denies weakness in extremities], [denies balance issues] Objective:: Physical Exam General: Alert and oriented x3, no acute distress, pleasant and cooperative, [on room air] Lungs: Resps E/U, Symmetrical chest expansion, Eyes: PERRL Musculoskeletal: Flexion and extension of Lumbar spine somewhat guarded secondary to pain, deep tendon reflexes normal, strength in upper and lower extremities [5/5], [abnormal gait noted] Neurological: speech clear, business development engineer equal, no gross sensory deficits Assessment:: degenerative disc disease with radiculopathy Plan:: Patient will no longer be able to receive narcotic medication from this will give her 1 month and she will be injections only from this time on. Dr. Quiñonez has reviewed this note and agrees with this plan of care. This note was dictated using voice recognition software and may contain errors or omissions
== END ==
PROVIDERS: PCP Emergency Medicine; Visit Provider Clinical Nurse Specialist Family Health
DX: M51.16 Intervertebral disc disorders with radiculopathy, lumbar region (principal)
CPT/HCPCS: 99213

== ENCOUNTER → 2019-01-12 08:13 | Outpatient (CLI) | payer BC, SELFPAY ==
--- NOTE | 2019-01-12 08:14 | XR_ITS ---
XR DEXA axial skeleton HISTORY: ITS.REASON: screening ORDERING PHYSICIAN: Krishna Cash MD PATIENT AGE: 53 years COMPARISON: 12/03/2016 FINDINGS: The BMD measured at the Right femoral neck is 0.921 g/cm squared with a T score of -0.8. This is considered Normal according to the World Health Organization criteria. Fracture risk is Low. The hip density has increased by 1.6% compared to the previous exam. IMPRESSION: Normal bone density with low fracture risk. Suggest follow-up exam december 2020
--- NOTE | 2019-01-12 08:14 | MM_ITS ---
MM Dig screening mamm BI w/CAD CAD Screening COMPARISON: Digital mammograms with CAD 12/03/2016 and 11/08/2015 INDICATION: There is no personal or family history of breast cancer TECHNIQUE: Standard CC and MLO images were obtained. R2 CAD reviewed. FINDINGS: Scattered fibroglandular densities are seen in both breasts. Again noted is a subtle area of asymmetric glandular density outer quadrant left breast on the cc view which appears to dissipate on MLO view as noted previously. There is no suspicious lesion and no suspicious microcalcifications. IMPRESSION: Fibrofatty parenchyma with no suspicious lesion seen BI-RADS Category: 1 Negative RECOMMENDED FOLLOW-UP: 1YR - 1 YEAR FOLLOW-UP (A letter has been sent to the patient regarding results of the study.)
== END ==
PROVIDERS: PCP Emergency Medicine; Visit Provider Obstetrics & Gynecology
DX: Z12.31 Encounter for screening mammogram for malignant neoplasm of breast (principal); Z78.0 Asymptomatic menopausal state
CPT/HCPCS: 77067; 77080

== ENCOUNTER → 2019-09-26 17:05 | Outpatient (CLI) | payer BC, SELFPAY ==
[2019-09-26 18:42] LABS: Basophils # 0.1 K/mm3 (0-0.2); Basophils % 0.5 % (0.1-2.0); Eosinophils # 0.4 K/mm3 (0.0-0.4); Hematocrit 40.3 % (37.0-47.0); Hemoglobin 12.9 g/dL (12.2-16.2); Lymphocytes # 3.9 K/mm3 (0.7-4.5); Lymphocytes % 41.5 % (10-50); Mean Corpuscular Hemoglobin 31.9 pg (27.0-31.2); Mean Corpuscular Volume 99.6 fl (81-99); Mean Platelet Volume 9.6 fl (7.4-10.4); Monocytes # 0.4 K/mm3 (0.1-1.0); Monocytes % 4.6 % (1.7-9.3); Neutrophils # 4.6 K/mm3 (1.8-7.8); Neutrophils % 49.4 % (37.0-80.0); Platelet Count 444 K/mm3 (142-424); Red Blood Count 4.05 M/mm3 (4.20-5.40); Red Cell Distribution Width 12.2 % (11.5-17.5); White Blood Count 9.3 K/mm3 (4.8-10.8)
[2019-09-26 20:17] LABS: Alanine Aminotransferase 31 U/L (12-78); Albumin Level 3.8 gm/dL (3.4-5.0); Alkaline Phosphatase 94 U/L (46-116); Anion Gap 16.4 mEq/L (5-15); Aspartate Amino Transferase 23 U/L (15-37); Bilirubin,Total 0.2 mg/dL (0.2-1.0); Blood Urea Nitrogen 14 mg/dL (7-18); Calcium 9.6 mg/dL (8.5-10.1); Carbon Dioxide 26 mmol/L (21.0-32.0); Chloride 105 mmol/L (98-107); Chol/HDL Ratio 3.8 (1-3.5); Cholesterol 195 mg/dL (140-200); Estimated Glomerular Filt Rate 65 ml/min (>60); GFR (African American) 79 ML/MIN (>60); Globulin 3.7 gm/dl (1.3-3.2); Glucose 85 mg/dL (74-106); HDL Cholesterol 51 mg/dL (29-89); LDL Cholesterol 114 mg/dL (0-130); Potassium 5.4 mmoL/L (3.5-5.1); Sodium 142 mmol/L (136-145); T4 (Thyroxine) 11.4 ug/dl (4.7-13.3); Thyroid Stimulating Hormone 2.27 uIU/ml (0.358-3.740); Total Protein,Serum 7.5 gm/dL (6.4-8.2); Triglycerides 151 mg/dL (30-200); VLDL Cholesterol 30 mg/dL (0-40)
[2019-09-26 20:35] LABS: Amphetamine/Metha Screen,Urine Negative ng/mL (<1000); Barbiturates Screen,Urine Negative ng/mL (<200); Benzodiazepines Screen,Urine Negative ng/mL (<200); Cannabinoid Screen,Urine Negative ng/mL (<50); Cocaine Screen,Urine Negative ng/mL (<300); Methadone Screen,Urine Negative ng/mL (<300); Opiate Screen,Urine Positive ng/mL (<300); Phencyclidine Screen,Urine Negative ng/mL (<25)
[2019-09-28 17:02] LABS: Vitamin D 25 Hydroxy 56.8 ng/mL (30.0-100.0)
[2019-10-04 11:55] LABS: Folate >20.0 ng/mL (>3.0); Vitamin B12 >2000 pg/mL (232-1245)
== END ==
PROVIDERS: Visit Provider Physician Assistant
DX: I10 Essential (primary) hypertension (principal); E78.5 Hyperlipidemia, unspecified; Z79.899 Other long term (current) drug therapy; E03.9 Hypothyroidism, unspecified; D64.9 Anemia, unspecified
CPT/HCPCS: 80053; 80061; 80305; 82607; 82652; 82746; 84436; 84443; 85025

== ENCOUNTER 2020-06-14 11:37 | Emergency (ER) | payer BC, SELFPAY ==
[2020-06-14 11:37] VITALS: BP 161/71; PULSE 95; RESP 20; TEMP 36.7; O2SAT 95; BMI 29.7
--- NOTE | 2020-06-14 12:17 | HMH.EDUTC ---
[facility] [place] Disposition Clinical Impression: Fever Qualifiers: Fever type: unspecified Qualified Code(s): R50.9 - Fever, unspecified Disposition: Home, Self-Care Condition on Discharge: Good Instructions: Preventing the Spread of Coronavirus Discharge Instructions Additional Instructions: You have been tested for COVID19. Please isolate yourself as if you are positive until test results are received. Referrals: Pedro Lopez MD [Primary Care Provider] - Time of Disposition: 12:20 Medical Decision Making - Nick Inquiry Pt receiving controlled substance: No Vital Signs: 06/14/20 11:37 Temperature 98.1 F Temperature Source Oral Pulse Rate [Left Radial] 95 H Respiratory Rate 20 Blood Pressure [Right Arm] 161/71 H Blood Pressure Mean [Right Arm] 101 Blood Pressure Source [Right Arm] Automatic Cuff Blood Pressure Position [Right Arm] Sitting 02 Sat by Pulse Oximetry 95 Oxygen Delivery Method Room Air [facility] [place] HPI - General Stated complaint: Covid test Time Seen by Provider: 06/14/20 12:18 Mode of Arrival: Ambulatory Source of Information: Patient Limitations: No Limitations Description of Symptoms (Recalled from Triage Doc. by RN): c/p sore throat, headache, and body aches that started last night HEENT Symptoms (Recalled from RN notes): Yes Resp Symptoms (Recalled from RN notes): No Skin Symptoms (Recalled from RN notes): No MS Symptoms (Recalled from RN notes): No Functional Status (Recalled from RN notes): wnl - History of Present Illness Provider Complaint: Sore throat, headache, body aches started last night. No fever. No cough. No loss of taste or smell. No vomiting or diarrhea. No known exposure to COVID19. Work has requested testing before return. Onset (ago): day(s) (1) Location: face Relieving factors: none Exacerbating factors: none Associated symptoms: fever/chills, malaise Treatments prior to arrival: none - Related Data Home Medications Medication Instructions Recorded Confirmed B-complex with vitamin C 1 cap PO DAILY 12/13/18 09/26/19 cholecalciferol (vitamin D3) 25 1,000 unit PO DAILY 12/13/18 09/26/19 mcg (1,000 unit) capsule krill 500 mg-omega 3 115 mg-dha 30 1 cap PO DAILY 12/13/18 09/26/19 mg-epa 64 [id number] capsule multivit with 1 tab PO DAILY 12/13/18 09/26/19 cjcozkem-keru-RO-lutein 8 mg iron-400 mcg-300 mcg tablet Previous Rx's Medication Instructions Recorded esomeprazole magnesium 20 mg 20 mg PO QDAY #90 cap 06/14/18 capsule,delayed release gabapentin 400 mg capsule 400 mg PO TID #90 cap 12/20/18 hydrocodone 10 mg-acetaminophen 1 tab PO TID PRN #90 tab 12/20/18 325 mg tablet meloxicam 7.5 mg tablet 7.5 mg PO DAILY #30 tab 03/09/19 linaclotide 145 mcg capsule 145 mcg PO QDAY #90 cap 04/18/19 diazepam 5 mg tablet 5 mg PO BID PRN #60 tab 09/26/19 conj estrogen-medroxyprogesterone 1 tab PO DAILY #28 tab 01/18/20 0.625 mg-2.5 mg tablet losartan 50 mg tablet See Rx Instructions .ROUTE 03/18/20 .COMPLEX #90 unspecified rosuvastatin 40 mg tablet See Rx Instructions .ROUTE 03/18/20 .COMPLEX #90 unspecified cyclobenzaprine 10 mg tablet 10 mg PO BID #180 tab 04/17/20 levothyroxine 25 mcg tablet See Rx Instructions .ROUTE 04/17/20 .COMPLEX #90 unspecified Allergies Allergy/AdvReac Type Severity Reaction Status Date / Time No Known Drug Allergies Allergy Unknown Verified 01/15/20 09:19 [NKDA] - Worker's Comp Is this a Worker's Comp case?: No [facility] History - Hepatitis A Screen Drug use history?: No High risk sexual behaviors?: No History of sexually transmitted infection?: No Currently employed?: No Childcare worker?: No Do you have indoor plumbing?: Yes Do you have electricity?: Yes Attestation statement:: This patient has been screened for Hepatitis A risk factors. Medical History: Reports:: Anxiety, Gastroesophageal Reflux Disease(GERD), Hyperlipidemia, Hypertension Denies:: Cancer, Diabetes Mellitus Type 1, Di
[2020-06-14 12:39] VITALS: BP 161/71; PULSE 95; RESP 19; TEMP 36.7; O2SAT 95
[2020-06-15 09:41] LABS: Covid-19 Nasal PCR Sendout UK NOT DETECTED
== END 2020-06-14 12:40 | disposition home or self-care (01) ==
PROVIDERS: Emergency Provider Physician Assistant; PCP Emergency Medicine
DX: Z20.828 Contact with and (suspected) exposure to other viral communicable diseases (principal); R50.9 Fever, unspecified; F41.9 Anxiety disorder, unspecified; I10 Essential (primary) hypertension; E78.5 Hyperlipidemia, unspecified; K21.9 Gastro-esophageal reflux disease without esophagitis; F17.210 Nicotine dependence, cigarettes, uncomplicated; Z90.49 Acquired absence of other specified parts of digestive tract; Z79.899 Other long term (current) drug therapy
CPT/HCPCS: 99201; U0003

== ENCOUNTER → 2020-11-12 13:20 | Outpatient (CLI) | payer BC, SELFPAY ==
--- NOTE | 2020-11-12 13:32 | XR_ITS ---
PROCEDURE: XR LUMBAR SPINE MIN 4V CLINICAL INDICATION: LBP; h/o surgery; fell 10/16 COMPARISON: No exams were available for comparison FINDINGS: Mild lumbar scoliosis convex right. There postsurgical changes with inter pedicular screws at L4 and L5. There is degenerative disc disease at L1-L2 and L3-L4 with a disc spacer device at L4-5. Bony hypertrophy is present at the facets at L5-S1 . Surgical clips are present in the right upper quadrant Other findings:None. IMPRESSION: Postsurgical and degenerative changes as described above. No acute finding. Dictated by: Juan M Gottlieb MD 11/12/2020 15:01 Juan M Gottlieb MD in [place] 11/12/2020 15:01
--- NOTE | 2020-11-12 13:32 | XR_ITS ---
PROCEDURE: XR HAND LT MIN 3V CLINICAL INDICATION: left hand pain; fell 10/16 Injury with pain COMPARISON: CR HANDL3 HAND-LT-3 VIEWS from 08/13/2017 FINDINGS: No fracture or dislocation. No lytic or blastic change. There is normal mineralization. The joint spaces are well-preserved. No significant degenerative/arthritic changes. No erosive changes evident. Other findings:None. IMPRESSION: No acute findings. Dictated by: Juan M Gottlieb MD 11/12/2020 14:59 Juan M Gottlieb MD in [facility] 11/12/2020 14:59
== END ==
PROVIDERS: PCP Emergency Medicine; Visit Provider Physician Assistant
DX: M54.5 Low back pain (principal); M79.642 Pain in left hand
CPT/HCPCS: 72110; 73130

== ENCOUNTER 2020-11-16 10:53 | Emergency (ER) | payer BC, SELFPAY ==
--- NOTE | 2020-11-16 10:55 | XR_ITS ---
PROCEDURE: XR KNEE LT 3V CLINICAL INDICATION: PAIN COMPARISON: No exams were available for comparison FINDINGS: No fracture or dislocation. No lytic or blastic change. There is normal mineralization. There is a small suprapatellar effusion. No significant osteoarthritic change. Probable small bone island medial femoral condyle Other findings:None. IMPRESSION: Small knee joint effusion otherwise negative Dictated by: Juan M Gottlieb MD 11/16/2020 13:13 Juan M Gottlieb MD in [facility] 11/16/2020 13:13
[2020-11-16 11:16] VITALS: BP 137/79; PULSE 73; RESP 19; TEMP 36.6; O2SAT 98; BMI 29.7
--- NOTE | 2020-11-16 11:24 | HMH.EDUTC ---
[facility] [place] Disposition Clinical Impression: Knee sprain Qualifiers: Encounter type: initial encounter Involved ligament of knee: other ligament Laterality: left Qualified Code(s): S83.8X2A - Sprain of other specified parts of left knee, initial encounter Disposition: Home, Self-Care Condition on Discharge: Good Instructions: How to Use Crutches, Knee Sprain, DI for Knee Sprain, How To Perform RICE (Rest, Ice, Compress, Elevate), How to Use a Knee Immobilizer Additional Instructions: *weight bearing as tolerated *RICE, Rest the extremity, Ice 15-20 minutes 3-4 times daily, Compress- wear the chaz wrap as discussed as much as possible to help reduce swelling and pain, Elevate the extremity when at rest *Chaz wrap/Knee immobilizer is for support and help control swelling, use it except in the shower. Be sure that is not to tight but not to loose either *Elevate when resting *Ibuprofen every 6-8 hours as needed for pain an inflammation. If need something more can take Tylenol in between doses of Ibuprofen to help Immediately follow up with your family doctor for new or worsening of symptoms, or no noticeable improvement over the next 3-[address] Caal office on Wednesday for appointment Follow up with your Family Doctor if needed Straight to ER if any life threatening symptoms Referrals: Pedro Lopez MD [Primary Care Provider] - As needed Harry Caal MD [Staff Physician] - As needed (Call office for appointment) Time of Disposition: 12:49 Medical Decision Making - Nick Inquiry Pt receiving controlled substance: No Nick was queried for this patient: No Vital Signs: 11/16/20 11:16 11/16/20 12:50 Temperature 97.8 F 97.8 F Temperature Source Oral Pulse Rate 73 Pulse Rate [Right Brachial] 73 Respiratory Rate 19 19 Blood Pressure 137/79 Blood Pressure [Right Arm] 137/79 Blood Pressure Mean [Right Arm] 98 Blood Pressure Source [Right Arm] Automatic Cuff Blood Pressure Position [Right Arm] Sitting 02 Sat by Pulse Oximetry 98 Oxygen Delivery Method Room Air - Radiology Data #1 Image(s): Knee Image Reviewed: Yes I reviewed the patient's radiology image Preliminary Findings: No Fracture Seen Possible small knee joint effusion - Physician Consults Physician Consulted: Ten Time: 12:44 Reason -: Orthopedic Eval/Care Comment/Response: Spoke with Dr Caal Advised Knee immobilizer, crutches, RICE and elevation and NSAIDS and call office on Wednesday for appointment [facility] [place] HPI - General Stated complaint: Lt knee pain, unknown origin Time Seen by Provider: 11/16/20 11:25 Mode of Arrival: Ambulatory Source of Information: Patient Limitations: No Limitations Description of Symptoms (Recalled from Triage Doc. by RN): PATIENT LEFT KNEE PAIN AND SWELLING X 1 WEEK. PAIN IS WORSE WHEN SHE PUTS WEIGHT ON IT. NO KNOWN INJURY HEENT Symptoms (Recalled from RN notes): No Resp Symptoms (Recalled from RN notes): No Skin Symptoms (Recalled from RN notes): No MS Symptoms (Recalled from RN notes): Yes Functional Status (Recalled from RN notes): WNL - History of Present Illness Provider Complaint: Patient states that a little over a week ago she was coming down the stairs and she stepped wrong and twisted her knee States that she had pain a couple of days then it got better but for the last week has been having pain and swelling in her left knee and hurts when she walks on it States that pain is on the side of her knee cap and will shoot pain down her leg at times. - Related Data Home Medications Medication Instructions Recorded Confirmed B-complex with vitamin C 1 cap PO DAILY 12/13/18 11/06/20 cholecalciferol (vitamin D3) 25 1,000 unit PO DAILY 12/13/18 11/06/20 mcg (1,000 unit) capsule krill 500 mg-omega 3 115 mg-dha 30 1 cap PO DAILY 12/13/18 11/06/20 mg-epa 64 [id number] capsule multivit with 1 tab PO DAILY 12/13/18 11/06/20 cczhhmme-jlpa-ZA-lutein 8 mg iron-400 mcg-300 mcg tablet Previou
[2020-11-16 12:50] VITALS: BP 137/79; PULSE 73; RESP 19; TEMP 36.6; O2SAT 98
== END 2020-11-16 12:54 | disposition home or self-care (01) ==
PROVIDERS: Emergency Provider Nurse Practitioner; PCP Emergency Medicine
DX: S83.8X2A Sprain of other specified parts of left knee, initial encounter (principal); X50.1XXA Overexertion from prolonged static or awkward postures, initial encounter; Y92.019 Unspecified place in single-family (private) house as the place of occurrence of the external cause; K21.9 Gastro-esophageal reflux disease without esophagitis; E78.5 Hyperlipidemia, unspecified; I10 Essential (primary) hypertension; Z79.899 Other long term (current) drug therapy; F17.210 Nicotine dependence, cigarettes, uncomplicated
CPT/HCPCS: 29505; 73562; 99202; G0463

== ENCOUNTER → 2020-11-30 07:40 | Outpatient (CLI) | payer BC, SELFPAY ==
--- NOTE | 2020-11-30 07:41 | MR_ITS ---
PROCEDURE: MR LUMBAR SPINE WO CON CLINICAL INDICATION: Back pain Pt c/o lbp radiating down left leg. S/p fall Oct 16, 2020. Pt has hx of lumbar surgery in 2000. Prior MRI L-spine done 07/26/2018. COMPARISON: MR SPLUMBWO MR lumbar spine wo con from 07/26/2018 MR MR KNEE LT WO CON from 11/30/2020 TECHNIQUE: Standard multiplanar multiecho sequences are performed without contrast. 3-D MIP and myelographic images are also rendered and reviewed FINDINGS: There is normal alignment. Spinal cord ends at the L1 level. T11-T12: Degenerative disc disease. T12-L1: Degenerative disc disease. L1-L2: Degenerative disc disease. L2-L3: Mild facet and ligamentum hypertrophy. L3-L4: Mild bulging disc with moderate facet and ligamentum hypertrophy with bilateral lateral recess and foraminal narrowing slightly greater on the left similar to the previous exam. Canal stenosis is present at this level. Overall not significantly changed. L4-5: Prior posterior fusion with inter pedicular screws and significant artifact especially on the axial images. L5-S1: Degenerative disc disease with bulging disc along with severe facet hypertrophic changes with moderate bilateral foraminal narrowing left greater than right overall not significantly changed. No extruded herniated disc apparent. IMPRESSION: Multilevel lumbar spondylosis with postsurgical changes. Please see above for detailed description at each level. Overall no significant change. No extruded herniated disc apparent. Dictated by: Juan M Gottlieb MD 12/03/2020 15:03 Juan M Gottlieb MD in [place] 12/03/2020 15:03
--- NOTE | 2020-11-30 07:41 | MR_ITS ---
PROCEDURE: MR KNEE LT WO CON CLINICAL INDICATION: knee pain Pt c/o medial left knee pain x4wks with no known injury or trauma. Lt knee x-ray done 11/16/2020. COMPARISON: CR XR KNEE LT 3V from 11/16/2020 TECHNIQUE: Routine multiplanar multi echo sequences are performed without gadolinium enhancement. FINDINGS: The cruciate ligaments appear intact. The collateral ligaments, patellar tendon, and quadriceps tendon appear intact. There is a small knee joint effusion. No definite meniscal tear. The patellar cartilage is well preserved. No bone bruise. No fracture or dislocation. IMPRESSION: Small knee joint effusion otherwise negative MRI of the left knee Dictated by: Juan M Gottlieb MD 12/03/2020 15:09 Juan M Gottlieb MD in [place] 12/03/2020 15:09
== END ==
PROVIDERS: PCP Emergency Medicine; Visit Provider Orthopaedic Surgery
DX: M54.9 Dorsalgia, unspecified (principal); M25.462 Effusion, left knee
CPT/HCPCS: 72148; 73721; 76376

== ENCOUNTER 2020-12-09 09:48 | Emergency (ER) | payer BC, SELFPAY ==
[2020-12-09 09:55] VITALS: BP 144/83; PULSE 95; RESP 18; TEMP 36.9; O2SAT 97; BMI 30.5
--- NOTE | 2020-12-09 10:23 | HMH.EDUTC ---
[facility] – [place] Disposition Clinical Impression: Cough with exposure to COVID-19 virus Disposition: Home, Self-Care Condition on Discharge: Good Instructions: Cough, Allergic Rhinitis, DI for Allergic Rhinitis, DI for COVID-19 (Suspected or Confirmed ), Preventing the Spread of Coronavirus Discharge Instructions Additional Instructions: *Monitor Temp, Over the counter Motrin or Tylenol as directed/as needed Tylenol every 4 hours and Motrin every 6 hours (as long as your family doctor has told you that you can take it) for fever or pain. and straight to ER if unable to lower temp less than 101.0 after medication given *Warm salt water gargles may help to soothe the throat *Throat Lozenges *Warm fluids like tea with honey may help to soothe the throat *Sleep elevated *Humidifier/Vaporizer *Flonase 2 sprays in each nostril daily but be aware that it may take 2-3 days before you notice improvement Your throat swab was sent for culture. Those results are typically sent to your primary care. Be sure to follow up in 2-3 days with your family doctor/primary care physician if no improvement so they can review those result and treat if necessary. If you don?t have a primary care doctor, I recommend you get one but in the mean time, you will have to return to a walk in clinic Follow up IMMEDIATELY for new or worsening symptoms or no Noticeable improvement over the next 48-72 hours. 911 for difficulty breathing or swallowing You were tested for today for COVID19 your test result should be back in the next 24-48 hours, you may call to the [facility] to see if your test results are back in the next 48 hours [phone] [facility] hours are 9am-9pm You was given a handout with instructions for Self Quarantine and Self isolation for while you wait on test results and what to do if they are positive If you are positive the Health Dept will be contacting you also Referrals: Pedro Lopez MD [Primary Care Provider] - As needed Forms: Work/School Release Time of Disposition: 10:34 Medical Decision Making - Nick Inquiry Pt receiving controlled substance: No Nick was queried for this patient: No Vital Signs: 12/09/20 09:55 Temperature 98.4 F Temperature Source Oral Pulse Rate [Right Brachial] 95 H Respiratory Rate 18 Blood Pressure [Right Arm] 144/83 H Blood Pressure Mean [Right Arm] 103 Blood Pressure Source [Right Arm] Automatic Cuff Blood Pressure Position [Right Arm] Sitting 02 Sat by Pulse Oximetry 97 Oxygen Delivery Method Room Air - Lab Data Lab Results 12/09/20 10:23: Influenza Type A Ag Negative, Influenza Type B Ag Negative 12/09/20 10:23: Strep Scn Rapid Clinic Negative Orders (Tests/Meds): ORDERS Category Date Time Status Covid-19 Nasal PCR ([facility]) Routine Lab 12/09/20 10:00 Received Strep Screen Confirmation Stat Micro 12/09/20 10:23 Received [facility] UTC HPI - General Stated complaint: covid exposure, symptoms Time Seen by Provider: 12/09/20 10:23 Mode of Arrival: Ambulatory Source of Information: Patient Limitations: No Limitations Description of Symptoms (Recalled from Triage Doc. by RN): PATIENT C/O SORE THROAT, HEADACHE, BODY ACHES, AND COUGH SINCE YESTERDAY. SHE WAS EXPOSED TO COVID AT WORK ON WEDNESDAY HEENT Symptoms (Recalled from RN notes): Yes Resp Symptoms (Recalled from RN notes): Yes Skin Symptoms (Recalled from RN notes): No MS Symptoms (Recalled from RN notes): No Functional Status (Recalled from RN notes): WNL - History of Present Illness Provider Complaint: Patient states that she was around someone at work last Wednesday that tested positive for COVID State that yesterday she started having sore throat, cough, body aches, headaches and chills State that she was concerned with COVID due to recent exposure States that also she cut her grass on Wednesday and wasnt sure if that may have caused this - Related Data Home Medications Medication Instructions Recorded Confirmed B-complex with vitamin C 1 cap P
[2020-12-09 10:28] LABS: UTC Influenza A Antigen Negative (Negative); UTC Influenza B Antigen Negative (Negative); UTC Strep Screen (Rapid) Negative (Negative)
[2020-12-09 10:37] VITALS: BP 144/83; PULSE 95; RESP 18; TEMP 36.9; O2SAT 97
--- NOTE | 2020-12-09 20:31 | PC.NURSE ---
PT NOTIFIED OF COVID TEST RESULTS
== END 2020-12-09 10:41 | disposition home or self-care (01) ==
PROVIDERS: Emergency Provider Nurse Practitioner; PCP Emergency Medicine
DX: U07.1 COVID-19 (principal); K21.9 Gastro-esophageal reflux disease without esophagitis; I10 Essential (primary) hypertension; E78.5 Hyperlipidemia, unspecified; F41.9 Anxiety disorder, unspecified; F17.210 Nicotine dependence, cigarettes, uncomplicated
CPT/HCPCS: 87804; 87880; 99202; G0463; U0003

== ENCOUNTER → 2022-01-19 12:38 | Outpatient (CLI) | payer BC, SELFPAY ==
[2022-01-19 14:12] LABS: Chloride 107 mmol/L (98-107); Potassium 4.8 mmoL/L (3.5-5.1); Sodium 143 mmol/L (136-145)
[2022-01-19 14:14] LABS: Blood Urea Nitrogen 17 mg/dl (7-17); Estimated Glomerular Filt Rate 74 ml/min (>60); GFR (African American) 90 ML/MIN (>60)
[2022-01-19 14:15] LABS: Alanine Aminotransferase 29 U/L (12-78); Albumin Level 4.9 g/dl (3.5-5.0); Albumin/Globulin Ratio 1.7 (1.1-1.8); Alkaline Phosphatase 105 U/L (38-126); Anion Gap 13.8 mEq/L (5-15); Aspartate Amino Transferase 33 U/L (14-36); Bilirubin,Total 0.5 mg/dl (0.2-1.3); Calcium 10.9 mg/dl (8.4-10.2); Carbon Dioxide 27 mmol/L (22.0-30.0); Chol/HDL Ratio 5.2 (1-3.5); Cholesterol 257 mg/dl (140-200); Globulin 2.9 g/dL (1.3-3.2); Glucose 123 mg/dl (74-100); HDL Cholesterol 49 mg/dl (40-60); Total Protein,Serum 7.8 g/dl (6.3-8.2); Triglycerides 127 mg/dl (30-150); VLDL Cholesterol 25 mg/dL (0-40)
[2022-01-19 14:28] LABS: Basophils # 0.1 K/mm3 (0-0.2); Basophils % 1.2 % (0.1-2.0); Eosinophils # 0.2 K/mm3 (0.0-0.4); Eosinophils % 2.2 % (0.1-12.0); Hematocrit 41.4 % (37.0-47.0); Hemoglobin 13.8 g/dL (12.2-16.2); Lymphocytes # 2.2 K/mm3 (0.7-4.5); Lymphocytes % 25.3 % (10-50); Mean Corpuscular HGB Conc 33.2 g/dL (31.8-35.4); Mean Corpuscular Hemoglobin 33.6 pg (27.0-31.2); Mean Corpuscular Volume 101.3 fl (81-99); Mean Platelet Volume 10.7 fl (7.4-10.4); Monocytes # 0.4 K/mm3 (0.1-1.0); Monocytes % 4.1 % (1.7-9.3); Neutrophils # 5.7 K/mm3 (1.8-7.8); Neutrophils % 67.2 % (37.0-80.0); Platelet Count 367 K/mm3 (142-424); Red Blood Count 4.09 M/mm3 (4.20-5.40); Red Cell Distribution Width 12.9 % (11.5-17.5); White Blood Count 8.5 K/mm3 (4.8-10.8)
[2022-01-19 14:34] LABS: 25-OH Vitamin D, Total 109 ng/mL (30-100)
[2022-01-19 14:48] LABS: Thyroid Stimulating Hormone 1.69 uIU/mL (0.465-4.68)
[2022-01-19 15:07] LABS: Vitamin B12 981 pg/mL (239-931)
== END ==
PROVIDERS: PCP Physician Assistant; Visit Provider Physician Assistant
DX: F41.9 Anxiety disorder, unspecified (principal); E67.3 Hypervitaminosis D; Z79.899 Other long term (current) drug therapy
CPT/HCPCS: 80053; 80061; 82306; 82607; 83036; 84443; 85025

== ENCOUNTER → 2022-02-07 14:06 | Outpatient (CLI) | payer BC, SELFPAY | PROVIDERS: PCP Physician Assistant; Visit Provider Physician Assistant | DX: G47.30 Sleep apnea, unspecified (principal); I10 Essential (primary) hypertension; R51.9 Headache, unspecified; R53.83 Other fatigue | CPT/HCPCS: G0399 ==

== ENCOUNTER 2024-03-31 10:34 | Outpatient (CLI) | payer BC, SELFPAY ==
--- NOTE | 2024-03-31 10:37 | MM_ITS ---
PROCEDURE INFORMATION: Exam: MG Bilateral Screening 3D Mammography Exam date and time: 03/31/2024 10:20 AM Age: 58 years old Clinical indication: Screening examination TECHNIQUE: Imaging protocol: Bilateral Screening tomosynthesis and 2D mammography including computer-aided detection (CAD) when performed. COMPARISON: 1. MG DIG MAMM-SCREEN BUD 01/12/2019 8:39 AM 2. MG DMSB DIG MAMM-SCREEN BUD W/CAD 12/03/2016 9:31 AM FINDINGS: MAMMOGRAPHY: Breast composition: There are scattered areas of fibroglandular density. Mass: None. Architectural distortion: None. Calcifications: No suspicious calcifications. Asymmetric density: None. Skin thickening: None. Axillary adenopathy: None. IMPRESSION: No mammographic evidence of malignancy. Annual screening is recommended unless otherwise clinically indicated. ASSESSMENT: BI-RADS Category 1: Negative
== END 2024-03-31 23:59 | disposition home or self-care (01) ==
LOC: RAD 10:34
PROVIDERS: PCP Physician Assistant; Visit Provider Obstetrics & Gynecology
DX: Z12.31 Encounter for screening mammogram for malignant neoplasm of breast (principal)
CPT/HCPCS: 77063; 77067

== ENCOUNTER 2024-04-03 16:58 | Outpatient (CLI) | payer BC, SELFPAY ==
[2024-04-03 16:57] LABS: Basophils # 0.1 K/mm3 (0-0.2); Basophils % 0.8 % (0.1-2.0); Eosinophils # 0.3 K/mm3 (0.0-0.4); Eosinophils % 4.1 % (0.1-12.0); Hematocrit 37.4 % (37.0-47.0); Hemoglobin 12.4 g/dL (12.2-16.2); Lymphocytes # 3.5 K/mm3 (0.7-4.5); Lymphocytes % 44.5 % (10-50); Mean Corpuscular HGB Conc 33.1 g/dL (31.8-35.4); Mean Corpuscular Volume 102.8 fl (81-99); Mean Platelet Volume 10.2 fl (7.4-10.4); Monocytes # 0.4 K/mm3 (0.1-1.0); Monocytes % 5.4 % (1.7-9.3); Neutrophils # 3.6 K/mm3 (1.8-7.8); Neutrophils % 45.2 % (37.0-80.0); Platelet Count 298 K/mm3 (142-424); Red Blood Count 3.64 M/mm3 (4.20-5.40); White Blood Count 7.9 K/mm3 (4.8-10.8)
[2024-04-03 17:52] LABS: Alanine Aminotransferase 21 U/L (12-78); Albumin Level 4.6 g/dl (3.5-5.0); Albumin/Globulin Ratio 1.5 (1.1-1.8); Alkaline Phosphatase 80 U/L (38-126); Anion Gap 11.5 mEq/L (5-15); Aspartate Amino Transferase 33 U/L (14-36); Bilirubin,Total 0.7 mg/dl (0.2-1.3); Blood Urea Nitrogen 21 mg/dl (7-17); Calcium 10.3 mg/dl (8.4-10.2); Carbon Dioxide 27 mmol/L (22.0-30.0); Chloride 106 mmol/L (98-107); Chol/HDL Ratio 3.5 (1-3.5); Cholesterol 191 mg/dl (140-200); Estimated Glomerular Filt Rate 74 ml/min (>60); GFR (African American) 89 ML/MIN (>60); Glucose 77 mg/dl (74-100); HDL Cholesterol 54 mg/dl (40-60); Potassium 4.5 mmoL/L (3.5-5.1); Sodium 140 mmol/L (136-145); Total Protein,Serum 7.6 g/dl (6.3-8.2); Triglycerides 119 mg/dl (30-150); VLDL Cholesterol 24 mg/dL (0-40)
[2024-04-03 18:03] LABS: Direct LDL Cholesterol 99.04 mg/dL (100-129)
[2024-04-03 18:06] LABS: 25-OH Vitamin D, Total 105 ng/mL (30-100)
[2024-04-03 18:21] LABS: Thyroid Stimulating Hormone 3.41 uIU/mL (0.465-4.68)
== END 2024-04-03 23:59 | disposition home or self-care (01) ==
LOC: LAB.DROPOF 16:59
PROVIDERS: PCP Physician Assistant; Visit Provider Physician Assistant
DX: E03.9 Hypothyroidism, unspecified (principal); I10 Essential (primary) hypertension; E78.5 Hyperlipidemia, unspecified
CPT/HCPCS: 80050; 80053; 80061; 82306; 84443; 85025

== ENCOUNTER 2025-04-03 07:20 | Outpatient (CLI) | payer BC, SELFPAY ==
--- OUTSIDE RECORDS SUMMARY | 2025-01-01 05:00 | XMS_ITS ---
Author Organization [facility] Address [address] [place] [address] Care Team Providers Care Road Repairer Name Role Phone Dylan Plasencia II Unavailable John BUSTAMANTE -PCP, Pedro Unavailable Unavaila ble REASON FOR VISIT RFA BUD L3/L4, L5/S1 (above and below fusion) no Sed Encounters Encounter Location Date Provider Diagnosis [facility] [address] [place] [address] 01/01/2025 Dylan Plasencia Other spondylosis with radiculopathy, lumbar region M47.26 Assessments Encounter Date Diagnosis (ICD Code) Assessment Notes Treatment Notes Treatment Clinical Notes Section Notes 01/01/2025 Other spondylosis with radiculopathy, lumbar region (ICD-10 - M47.26) Plan Of Treatment Next Appt Details Provider Name:Dylan pereyra, 04/13/2025 09:00:00 AM, [address], [address], [place], [address], Progress Notes * Shayan LINDEROB:1965 (59 yo F)Acc No.[id number]:01/01/2025 Patient: Perla TA Provider: Shakir Plasencia II, M.D. :1965 A ge:59 Y S ex:Female Date:01/01/2025 Address:[facility] [id number] * * Electronic signature of Alessandro Plasencia II, M.D. on 04/03/2025 at 06:22 AM CDT Sign off status: Pending * Provider: Shakir Plasencia II, M.D. Date: 0 01/01/2025 Generated for Carina thomas/Peña/Milagros on: 0 04/03/2025 06:22 AM CDT
--- OUTSIDE RECORDS SUMMARY | 2025-02-14 04:45 | XMS_ITS ---
Author Organization [facility] Address [address] [place] [address] Care Team Providers Care Water Chemist Name Role Phone Dylan Plasencia II Unavailable John BUSTAMANTE -PCP, Pedro Unavailable Unavaila ble Allergies No Known Allergies Results Component Value Reference Range Notes Urine Test ANALYZER Reviewed date:02/14/2025 12:30:28 PM Interpretation:+OPI +HYD Performing Lab: Notes/Report: +OPI +HYD Heroin Metabolite (6AM) NEG Amphetamine (AMP) NEG Benzodiazepine (RAYMOND) NEG Buprenorphine NEG Cocaine (LESIA) NEG Hydrocodone (HYD) POS Methadone (MTD) NEG Opiate (OPI) POS Oxycodone (OXY) NEG REASON FOR VISIT back pain, neck pain Medications Medication SIG (Take, Route, Frequency, Duration) Notes Start Date End Date Status losartan 50 mg 1 tab(s) orally once a day; Duration: 30 day(s) 02/12/2022 Active rosuvastatin 40 mg 1 tab(s) orally once a day; Duration: 30 day(s) 02/12/2022 Active Acetaminophen-Hydrocod one Bitartrate 325 mg-10 mg 1 tab(s) orally 3 times a day; Duration: 28 days February 2025 RX DO NOT FILL SOONER THAN 28 DAYS, (OK TO FILL EARLY, ONLY IF CLOSED) Active Acetaminophen-Hydrocod one Bitartrate 325 mg-10 mg 1 tab(s) orally 3 times a day; Duration: 28 days January 2025 RX DO NOT FILL SOONER THAN 28 DAYS, (OK TO FILL EARLY, ONLY IF CLOSED) Active gabapentin 600 mg 1 cap(s) orally three times a day; Duration: 28 days DO NOT FILL SOONER THAN 28 DAYS, (OK TO FILL EARLY, ONLY IF CLOSED) Active Social History Tobacco Use: Social History Observation Description Date Details (start date - stop date) Current Smoker NA - NA Smoking-PQRS Question Answer Notes Are you a: current smoker Vital Signs Blood pressure systolic 139 mm Hg 02/15/20 25 Blood pressure diastolic 88 mm Hg 025 Heart Rate 77 /min 02/14/2025 Height 64 in 02/14/2025 Weight 165 lbs 02/14/2025 BMI 28.32 kg/m2 02/14/2025 Encounters Encounter Location Date Provider Diagnosis [facility] [address] [place] [address] 02/14/2025 Dylan Plasencia [facility] (current[facility] drug therapy Z79.899 ; Postlaminectomy syndrome, not elsewhere classified M96.1 ; Radiculopathy, lumbar region M54.16 ; Spondylosis without myelopathy or radiculopathy, lumbar region M47.816 ; Spondylosis without myelopathy or radiculopathy, cervical region M47.812 and Carpal tunnel syndrome, bilateral upper limbs G56.03 Assessments Encounter Date Diagnosis (ICD Code) Assessment Notes Treatment Notes Treatment Clinical Notes Section Notes 02/14/2025 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 Refill GBP 600mg TID 2. Refill Hotchkiss 10/325mg TID 3. Continue Lumbar HEP 4. F/U 2 months 5. S/P 01/23/2025 RFA JEAN-PAUL L3/L4, L5/S1 December 19, 2024: Review of history and previous note: Ms. Hanson is a 58-year-old lady who presents with a history of previous laminectomy and fusion in 2000 and she has a history of chronic lower back pain with numbness and tingling in her legs. No history of diabetes mellitus.. Continue to have low back pain, denies changes of character in pain. Pain medicine makes pain tolerable where she can continue to work. Patient is doing red light therapy twice a week for LBP. Patient reports that it does help relieve pain. She continues to take hydrocodone 10/325mg 3 times daily and gabapentin 600mg 3 times daily without any complaints related to medications or side effects. Babita and UDS reviewed. Continues to work full-time. Continues HEP. Home gym in her basement. December 19, 2024: Ms. Hanson presents today for follow-up and electrodiagnostic evaluation of both lower extremities. EMG/NCS was completed. The patient has pain in the lower back extending into both lower extremities. She has a history of lower back surgery in the past. No new problems today. I did review the urine drug screen that was negative for medications. I will send it off for definitive analysis. We will refill her medications for now and see her back in 2 months. No new problems otherwise today. 02/14/2025 The patient is a 59-year-old female presenting for follow-up regarding chronic pain management. She reports ongoing chronic lower back pain radiating into the right leg and down to the foot, following an L5-S1 dermatomal distribution. She also continues to experience chronic neck pain. Her pain history is significant for prior lumbar fusion at L4-L5. She describes her low back and right leg pain as constant, with sensations of aching, numbness, and tingling. Her current pain averages 3/10 in intensity and is exacerbated by immobility, while remaining physically active provides relief. She reports no significant interference with activities of daily living. She is currently managed on Hotchkiss 10/325 mg TID and Gabapentin 600 mg TID, which together provide approximately 80% relief for 3 hours. She denies any side effects from her prescribed regimen. The patient is compliant with her home exercise program (HEP). She has previously undergone interventional pain management, including radiofrequency ablation (RFA) above and below the fusion site at L3/L4 and L5/S1 on 01/23/2025, with symptom exacerbation noted on follow-up as of 02/14/2025. She reports better results in the past with lumbar medial branch blocks (LMBB) and expresses a preference for those if she considers intervention in the future. At this time, she declines any additional injection therapy. Electrodiagnostic testing (EMG/NCS) dated 12/19/2024 showed no acute or chronic changes but did confirm findings consistent with an old S1 radiculopathy. There were no signs of peripheral polyneuropathy, myopathy, or compression neuropathy. BABITA and urine drug screen (UDS) were reviewed and found to be compliant. Opioid risk assessment is moderate. Continue current opioid and adjunct therapy with Hotchkiss 10/325 mg TID and Gabapentin 600 mg TID. The patient will return for follow-up in two months or sooner as needed. If pain persists or worsens, reconsideration of LMBB or other interventional options may be discussed at that time. 02/14/2025 Postlaminectomy syndrome, not elsewhere classified (ICD-10 - M96.1) December 19, 2024: Review of history and previous note: Ms. Hanson is a 58-year-old lady who presents with a history of previous laminectomy and fusion in 2000 and she has a history of chronic lower back pain with numbness and tingling in her legs. No history of diabetes mellitus.. Continue to have low back pain, denies changes of character in pain. Pain medicine makes pain tolerable where she can continue to work. Patient is doing red light therapy twice a week for LBP. Patient reports that it does help relieve pain. She continues to take hydrocodone 10/325mg 3 times daily and gabapentin 600mg 3 times daily without any complaints related to medications or side effects. Babita and UDS reviewed. Continues to work full-time. Continues HEP. Home gym in her basement. December 19, 2024: Ms. Hanson presents today for follow-up and electrodiagnostic evaluation of both lower extremities. EMG/NCS was completed. The patient has pain in the lower back extending into both lower extremities. She has a history of lower back surgery in the past. No new problems today. I did review the urine drug screen that was negative for medications. I will send it off for definitive analysis. We will refill her medications for now and see her back in 2 months. No new problems otherwise today. 02/14/2025 The patient is a 59-year-old female presenting for follow-up regarding chronic pain management. She reports ongoing chronic lower back pain radiating into the right leg and down to the foot, following an L5-S1 dermatomal distribution. She also continues to experience chronic neck pain. Her pain history is significant for prior lumbar fusion at L4-L5. She describes her low back and right leg pain as constant, with sensations of aching, numbness, and tingling. Her current pain averages 3/10 in intensity and is exacerbated by immobility, while remaining physically active provides relief. She reports no significant interference with activities of daily living. She is currently managed on Hotchkiss 10/325 mg TID and Gabapentin 600 mg TID, which together provide approximately 80% relief for 3 hours. She denies any side effects from her prescribed regimen. The patient is compliant with her home exercise program (HEP). She has previously undergone interventional pain management, including radiofrequency ablation (RFA) above and below the fusion site at L3/L4 and L5/S1 on 01/23/2025, with symptom exacerbation noted on follow-up as of 02/14/2025. She reports better results in the past with lumbar medial branch blocks (LMBB) and expresses a preference for those if she considers intervention in the future. At this time, she declines any additional injection therapy. Electrodiagnostic testing (EMG/NCS) dated 12/19/2024 showed no acute or chronic changes but did confirm findings consistent with an old S1 radiculopathy. There were no signs of peripheral polyneuropathy, myopathy, or compression neuropathy. BABITA and urine drug screen (UDS) were reviewed and found to be compliant. Opioid risk assessment is moderate. Continue current opioid and adjunct therapy with Hotchkiss 10/325 mg TID and Gabapentin 600 mg TID. The patient will return for follow-up in two months or sooner as needed. If pain persists or worsens, reconsideration of LMBB or other interventional options may be discussed at that time. 02/14/2025 Radiculopathy, lumbar region (ICD-10 - M54.16) December 19, 2024: Review of history and previous note: Ms. Hanson is a 58-year-old lady who presents with a history of previous laminectomy and fusion in 2000 and she has a history of chronic lower back pain with numbness and tingling in her legs. No history of diabetes mellitus.. Continue to have low back pain, denies changes of character in pain. Pain medicine makes pain tolerable where she can continue to work. Patient is doing red light therapy twice a week for LBP. Patient reports that it does help relieve pain. She continues to take hydrocodone 10/325mg 3 times daily and gabapentin 600mg 3 times daily without any complaints related to medications or side effects. Babita and UDS reviewed. Continues to work full-time. Continues HEP. Home gym in her basement. December 19, 2024: Ms. Hanson presents today for follow-up and electrodiagnostic evaluation of both lower extremities. EMG/NCS was completed. The patient has pain in the lower back extending into both lower extremities. She has a history of lower back surgery in the past. No new problems today. I did review the urine drug screen that was negative for medications. I will send it off for definitive analysis. We will refill her medications for now and see her back in 2 months. No new problems otherwise today. 02/14/2025 The patient is a 59-year-old female presenting for follow-up regarding chronic pain management. She reports ongoing chronic lower back pain radiating into the right leg and down to the foot, following an L5-S1 dermatomal distribution. She also continues to experience chronic neck pain. Her pain history is significant for prior lumbar fusion at L4-L5. She describes her low back and right leg pain as constant, with sensations of aching, numbness, and tingling. Her current pain averages 3/10 in intensity and is exacerbated by immobility, while remaining physically active provides relief. She reports no significant interference with activities of daily living. She is currently managed on Hotchkiss 10/325 mg TID and Gabapentin 600 mg TID, which together provide approximately 80% relief for 3 hours. She denies any side effects from her prescribed regimen. The patient is compliant with her home exercise program (HEP). She has previously undergone interventional pain management, including radiofrequency ablation (RFA) above and below the fusion site at L3/L4 and L5/S1 on 01/23/2025, with symptom exacerbation noted on follow-up as of 02/14/2025. She reports better results in the past with lumbar medial branch blocks (LMBB) and expresses a preference for those if she considers intervention in the future. At this time, she declines any additional injection therapy. Electrodiagnostic testing (EMG/NCS) dated 12/19/2024 showed no acute or chronic changes but did confirm findings consistent with an old S1 radiculopathy. There were no signs of peripheral polyneuropathy, myopathy, or compression neuropathy. BABITA and urine drug screen (UDS) were reviewed and found to be compliant. Opioid risk assessment is moderate. Continue current opioid and adjunct therapy with Hotchkiss 10/325 mg TID and Gabapentin 600 mg TID. The patient will return for follow-up in two months or sooner as needed. If pain persists or worsens, reconsideration of LMBB or other interventional options may be discussed at that time. 02/14/2025 Spondylosis without myelopathy or radiculopathy, lumbar region (ICD-10 - M47.816) December 19, 2024: Review of history and previous note: Ms. Hanson is a 58-year-old lady who presents with a history of previous laminectomy and fusion in 2000 and she has a history of chronic lower back pain with numbness and tingling in her legs. No history of diabetes mellitus.. Continue to have low back pain, denies changes of character in pain. Pain medicine makes pain tolerable where she can continue to work. Patient is doing red light therapy twice a week for LBP. Patient reports that it does help relieve pain. She continues to take hydrocodone 10/325mg 3 times daily and gabapentin 600mg 3 times daily without any complaints related to medications or side effects. Babita and UDS reviewed. Continues to work full-time. Continues HEP. Home gym in her basement. December 19, 2024: Ms. Hanson presents today for follow-up and electrodiagnostic evaluation of both lower extremities. EMG/NCS was completed. The patient has pain in the lower back extending into both lower extremities. She has a history of lower back surgery in the past. No new problems today. I did review the urine drug screen that was negative for medications. I will send it off for definitive analysis. We will refill her medications for now and see her back in 2 months. No new problems otherwise today. 02/14/2025 The patient is a 59-year-old female presenting for follow-up regarding chronic pain management. She reports ongoing chronic lower back pain radiating into the right leg and down to the foot, following an L5-S1 dermatomal distribution. She also continues to experience chronic neck pain. Her pain history is significant for prior lumbar fusion at L4-L5. She describes her low back and right leg pain as constant, with sensations of aching, numbness, and tingling. Her current pain averages 3/10 in intensity and is exacerbated by immobility, while remaining physically active provides relief. She reports no significant interference with activities of daily living. She is currently managed on Hotchkiss 10/325 mg TID and Gabapentin 600 mg TID, which together provide approximately 80% relief for 3 hours. She denies any side effects from her prescribed regimen. The patient is compliant with her home exercise program (HEP). She has previously undergone interventional pain management, including radiofrequency ablation (RFA) above and below the fusion site at L3/L4 and L5/S1 on 01/23/2025, with symptom exacerbation noted on follow-up as of 02/14/2025. She reports better results in the past with lumbar medial branch blocks (LMBB) and expresses a preference for those if she considers intervention in the future. At this time, she declines any additional injection therapy. Electrodiagnostic testing (EMG/NCS) dated 12/19/2024 showed no acute or chronic changes but did confirm findings consistent with an old S1 radiculopathy. There were no signs of peripheral polyneuropathy, myopathy, or compression neuropathy. BABITA and urine drug screen (UDS) were reviewed and found to be compliant. Opioid risk assessment is moderate. Continue current opioid and adjunct therapy with Hotchkiss 10/325 mg TID and Gabapentin 600 mg TID. The patient will return for follow-up in two months or sooner as needed. If pain persists or worsens, reconsideration of LMBB or other interventional options may be discussed at that time. 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 Hanson is a 58-year-old lady who presents with a history of previous laminectomy and fusion in 2000 and she has a history of chronic lower back pain with numbness and tingling in her legs. No history of diabetes mellitus.. Continue to have low back pain, denies changes of character in pain. Pain medicine makes pain tolerable where she can continue to work. Patient is doing red light therapy twice a week for LBP. Patient reports that it does help relieve pain. She continues to take hydrocodone 10/325mg 3 times daily and gabapentin 600mg 3 times daily without any complaints related to medications or side effects. Babita and UDS reviewed. Continues to work full-time. Continues HEP. Home gym in her basement. December 19, 2024: Ms. Hanson presents today for follow-up and electrodiagnostic evaluation of both lower extremities. EMG/NCS was completed. The patient has pain in the lower back extending into both lower extremities. She has a history of lower back surgery in the past. No new problems today. I did review the urine drug screen that was negative for medications. I will send it off for definitive analysis. We will refill her medications for now and see her back in 2 months. No new problems otherwise today. 02/14/2025 The patient is a 59-year-old female presenting for follow-up regarding chronic pain management. She reports ongoing chronic lower back pain radiating into the right leg and down to the foot, following an L5-S1 dermatomal distribution. She also continues to experience chronic neck pain. Her pain history is significant for prior lumbar fusion at L4-L5. She describes her low back and right leg pain as constant, with sensations of aching, numbness, and tingling. Her current pain averages 3/10 in intensity and is exacerbated by immobility, while remaining physically active provides relief. She reports no significant interference with activities of daily living. She is currently managed on Hotchkiss 10/325 mg TID and Gabapentin 600 mg TID, which together provide approximately 80% relief for 3 hours. She denies any side effects from her prescribed regimen. The patient is compliant with her home exercise program (HEP). She has previously undergone interventional pain management, including radiofrequency ablation (RFA) above and below the fusion site at L3/L4 and L5/S1 on 01/23/2025, with symptom exacerbation noted on follow-up as of 02/14/2025. She reports better results in the past with lumbar medial branch blocks (LMBB) and expresses a preference for those if she considers intervention in the future. At this time, she declines any additional injection therapy. Electrodiagnostic testing (EMG/NCS) dated 12/19/2024 showed no acute or chronic changes but did confirm findings consistent with an old S1 radiculopathy. There were no signs of peripheral polyneuropathy, myopathy, or compression neuropathy. BABITA and urine drug screen (UDS) were reviewed and found to be compliant. Opioid risk assessment is moderate. Continue current opioid and adjunct therapy with Hotchkiss 10/325 mg TID and Gabapentin 600 mg TID. The patient will return for follow-up in two months or sooner as needed. If pain persists or worsens, reconsideration of LMBB or other interventional options may be discussed at that time. 02/14/2025 Carpal tunnel syndrome, bilateral upper limbs (ICD-10 - G56.03) December 19, 2024: Review of history and previous note: Ms. Hanson is a 58-year-old lady who presents with a history of previous laminectomy and fusion in 2000 and she has a history of chronic lower back pain with numbness and tingling in her legs. No history of diabetes mellitus.. Continue to have low back pain, denies changes of character in pain. Pain medicine makes pain tolerable where she can continue to work. Patient is doing red light therapy twice a week for LBP. Patient reports that it does help relieve pain. She continues to take hydrocodone 10/325mg 3 times daily and gabapentin 600mg 3 times daily without any complaints related to medications or side effects. Babita and UDS reviewed. Continues to work full-time. Continues HEP. Home gym in her basement. December 19, 2024: Ms. Hanson presents today for follow-up and electrodiagnostic evaluation of both lower extremities. EMG/NCS was completed. The patient has pain in the lower back extending into both lower extremities. She has a history of lower back surgery in the past. No new problems today. I did review the urine drug screen that was negative for medications. I will send it off for definitive analysis. We will refill her medications for now and see her back in 2 months. No new problems otherwise today. 02/14/2025 The patient is a 59-year-old female presenting for follow-up regarding chronic pain management. She reports ongoing chronic lower back pain radiating into the right leg and down to the foot, following an L5-S1 dermatomal distribution. She also continues to experience chronic neck pain. Her pain history is significant for prior lumbar fusion at L4-L5. She describes her low back and right leg pain as constant, with sensations of aching, numbness, and tingling. Her current pain averages 3/10 in intensity and is exacerbated by immobility, while remaining physically active provides relief. She reports no significant interference with activities of daily living. She is currently managed on Hotchkiss 10/325 mg TID and Gabapentin 600 mg TID, which together provide approximately 80% relief for 3 hours. She denies any side effects from her prescribed regimen. The patient is compliant with her home exercise program (HEP). She has previously undergone interventional pain management, including radiofrequency ablation (RFA) above and below the fusion site at L3/L4 and L5/S1 on 01/23/2025, with symptom exacerbation noted on follow-up as of 02/14/2025. She reports better results in the past with lumbar medial branch blocks (LMBB) and expresses a preference for those if she considers intervention in the future. At this time, she declines any additional injection therapy. Electrodiagnostic testing (EMG/NCS) dated 12/19/2024 showed no acute or chronic changes but did confirm findings consistent with an old S1 radiculopathy. There were no signs of peripheral polyneuropathy, myopathy, or compression neuropathy. BABITA and urine drug screen (UDS) were reviewed and found to be compliant. Opioid risk assessment is moderate. Continue current opioid and adjunct therapy with Hotchkiss 10/325 mg TID and Gabapentin 600 mg TID. The patient will return for follow-up in two months or sooner as needed. If pain persists or worsens, reconsideration of LMBB or other interventional options may be discussed at that time. Plan Of Treatment Medication Medication Name Sig Start Date Stop Date Notes Acetaminophen-Hydrocodon e Bitartrate 325 mg-10 mg 1 tab(s) orally 3 times a day; Duration: 28 days February 2025 RX DO NOT FILL SOONER THAN 28 DAYS, (OK TO FILL EARLY, ONLY IF CLOSED) Acetaminophen-Hydrocodon e Bitartrate 325 mg-10 mg 1 tab(s) orally 3 times a day; Duration: 28 days January 2025 RX DO NOT FILL SOONER THAN 28 DAYS, (OK TO FILL EARLY, ONLY IF CLOSED) gabapentin 600 mg 1 cap(s) orally three times a day; Duration: 28 days DO NOT FILL SOONER THAN 28 DAYS, (OK TO FILL EARLY, ONLY IF CLOSED) Treatment Notes Assessment Notes Other prison (current) drug therapy 02/14/2025 1. Refill GBP 600mg TID 2. Refill Hotchkiss 10/325mg TID 3. Continue Lumbar HEP 4. F/U 2 months 5. S/P 01/23/2025 RFA JEAN-PAUL L3/L4, L5/S1 Next Appt Details Follow Up: 2 Months, Reason: Provider Name:Dylan pereyra, 04/13/2025 09:00:00 AM, [address], [address], [place], [address], Procedure Notes * Category Sub-Category Detail Notes PROVIDER ENCOUNTER AND OVERSIGHT Consult Performed By: Keegan ([facility] RENTAL CLERK-BC-AVELINO)Rishabh 02/18/2025 11:41:19 PM > collaborated treatment plan with Dylan prakash M.D. , supervising physician who was present in office during consultation Progress Notes * Shayan HANSONOB:1965 (59 yo F)Acc No.[id number]:02/14/2025 FollowUP Patient: Perla Landon Provider: Debbie Plasencia II, M.D. Resource:Keegan ([facility] RENTAL CLERK-[facility]ELINO) Glenna :1965 A ge:59 Y S ex:Female Date:02/14/2025 Address:[address] [place] [address] [place], [id number] Subjective: * Chief Complaints: * 1 . Back pain. 2. Neck pain. * HPI: T ODAYS PAIN EVALUATION: 59 year old female presents with c/o MEDICATION FOLLOW UP: T he patient is currently prescribed Hotchkiss 10/325mg TID and GBP 600mg TID, which provides 80% relief of pain symptoms for 3 hours. The last dose was taken 02/14/2025. D enies any side effects. CURRENT PAIN SYMPTOMS: L ocation of Worst Pain: L ow Back Right leg, P ain Frequency: c onstant, always, P ain Description: a ene, numb, tingling, A verage Pain Score VAS: 3 , P ain Exacerbation: no movement, P ain Alleviation: staying active,, A DL/Quality of Life Interference: n othing. P AIN MANAGEMENT TREATMENT HISTORY: IMAGING HISTORY: 0 03/15/2014-MRI THORACIC:Mild degenerative disc disease of the horacic spine from T5 to T12 with small right paracentral disc protrusion/herniation at T6/T7 and a tiny right foraminal disc protrusion at T10/11. 0 03/15/2014-MRI CERVICAL:Minimal degenerative disc diesease, C4-C5,C5-6 and C6-7 with very minimal bulging of the disc at C6/C7. No disc herniations. No neural impingement apparent 1 09/25/2017-MRI LUMBAR::Postsurgerical changes at L4-L5 with artifact at that level from prior fusion. L3-L4 Bulging disc along with facet and ligamentum flavum hypertrophy. There is seveere bilateral lateral recess narrowing with moderate bilateral foraminal narrowing. There is canal stenosis at this level hypertrophy with moderate right and severe left-sided foraminal narrowing from facet hypertrophic changes. 0 11/30/2020-MRI RT KNEE:Small knee joint effusion otherwise negative mRI of the left knee. 0 11/30/2020 -MRI LUMBAR: There is normal alignment. Spinal cord ends at the L1 level. No extended herniated disc apparent. 1 EMG/NCS BUE: This is an abnormal electrodiagnostic evaluation of both upper extremities. 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 The patient had motor and sensory involvement. I saw nothing to suggest a peripheral polyneuropathy or myopathy or radiculopathy in the upper extremities. . P REVIOUS INJECTION\PROCEDURE HISTORY:? 0 01/31/2020-#1 Jean-Paul LMBB L2, L3,L5, 95% relief for 1 month. 0 03/06/2020-#2 Jean-Paul LMBB L3, L5, 95% relief for 1 month 0 04/10/2020-#1 RT RFA L2,L3, L5, 98% with relief for 8 months 1 -#1 LT RFA L2,L3,L5 60% relief for 6 months 0 01/29/2021-RFA LT L2,L3,L5, 50% relief for 8 months 0 02/04/2021FA RT L2 L3 L5 85% relief for 8 months 0 02/19/2022FA JEAN-PAUL L2 L3 L5 80% relief for 6 months 0 11/14/2024#1 LMBB JEAN-PAUL L2,L3,L5 80% relief for 2 months 0 12/05/2024#1 LMBB JEAN-PAUL L2,L3,L4; 80% relief for 2 months 0 01/23/2025RFA JEAN-PAUL L3/L4, L5/S1 above and below fusion ongoing as of . P HYSICAL/AQUA THERAPY/DME/OTHER HISTORY: P hysical therapy program completed. S he is using heat with relief as of 04/17/2020. 2 025- No therapies reported as of . P ERTINENT SURGICAL EVALUATIONS/SPECIALIST CONSULTS l umbar fusion (L4-L5) with Dr.James Lewis in 2000 . P REVIOUS PAIN CLINIC CARE: A kana Quiñonez- Left clinic h x of LESI in 07/2018 . Le DOMÍNGUEZ OF INITIAL EVALUATION: 1 -New patient consult referred by CPS due to clinic closing for continuing treatment of chronic pain. Pain onset unknown without incident. Most severe pain is her low back pain which is axial in nature. Hx of lumbar fusion (L4-L5) with Dr.James Lewis in 2000. Secondary pain generator is her neck pain. She states that the surgery helped with her leg neuropathy.Had a fall roughly one month ago resulting in RT knee pain. States she did not go to the doctor for further evaluation. She does not feel that she needs an xray of it. She is scheduled for a routine colonoscopy soon. Former of Dr.Anjam Quiñonez with hx of LESI in 07/2018, since then all radicular symtoms have subsided. We discussed more interventional methods which she continues to decline. . C OMPLIANCE: RISK ASSESSMENT AND STRATIFICATION: R ISK GROUP: MODERATE RISK D ue to: Concominant use of the following medications: muscle relaxer. membrane stabilizer. benzodiazepine . U RINE DRUG TESTIN 03/15/2024 Screen Expected Definitive Expected 0 05/12/2024 Screen Expected 1 09/06/2023 Screen Expected 0 09/01/2024 Screen Expected 0 10/24/2024; Definitive Expected 0 12/18/2024 S creen Unexpected(-),Definitive Expected, 0 02/14/2025 Screen Expected . M ONITORING: M orphine Equivalent (MME): 30 mg K ASPER reviewed today and appropriate . T ESTING/RISK ASSESSMENTS O RT Score/Result: 0. * ROS: G ENERAL: Fever D enies. H EENT: Sore throat D enies. C ARDIOVASCULAR: Positive for d enies cardiovascular symptoms. ? R ESPIRATORY: Positive for d enies respiratory issues. G ASTROINTESTINAL: Positive for R eflux- heartburn. G ENITOURINARY: Positive for d enies genitourinary issues. M USCULOSKELETAL: Positive for b ack pain. N EUROLOGICAL: Positive for n umbness, tingling. P SYCHIATRIC: Positive for a nxiety- panic attacks, mood changes . ? E NDOCRINE: Positive for debbie pagan endocrine issues. * Medical History: A nxiety diagnosed 2014 managed by Pedro Lopez MD, Reflux diagnosed 2009 managed by Pedro Lopez MD, Hyperlipidemia diagnosed 2011 managed by Pedro Lopez MD, Hypertension diagnosed 2011 managed by Pedro Lopez MD. * Surgical History: C yst removal-Lt ankle/ [facility] / (OP) 1997, DC/ [facility]/ (OP) 2002, lumbar fusion (L4-L5) with Dr.James Lewis / [place] / overnight stay 2000, carpal tunnel RT by Dr. Hogue at [facility] (op) 09/14/2023, carpal tunnel LT by Dr. Radford at [facility] (op) 09/28/2023. * Hospitalization/Major Diagno stic Procedure: D enies Past Hospitalization. * Family History: N on-Contributory. Denies Family History of Substance Abuse. * Social History: S moking C igarettes current smoker, 1 PPD . P ersonal History Drug Use: Denies. Alcohol: Denies. Smoking-PQRS A re you a: c urrent smoker. * Medications: T aking rosuvastatin 40 mg tablet 1 tab(s) orally once a day, Taking losartan 50 mg tablet 1 tab(s) orally once a day, Taking gabapentin 600 mg tablet 1 cap(s) orally three times a day, Taking Acetaminophen-Hydrocodone Bitartrate 325 mg-10 mg tablet 1 tab(s) orally 3 times a day, Medication List reviewed and reconciled with the patient * Allergies: N .K.D.A. Objective: * Vitals: B P:139/88, HR:77, Pain VAS (0-10):5, Ht: 64, Wt:165, BMI:28.32 Index. * Examination: G eneral Examination: Nurse/Freight Tallier: Kaia Casas (MA-Lex) 02/14/2025 8:41:16 AM > . General Appearance: w ell-nourished individual in no acute distress. The patient is alert and oriented and cooperative for evaluation. HEENT: unremarkable. Neck, Thyroid : supple. Heart: regular rate. Neurologic Exam: P atient ambulates with an antalgic gait, pitched forward. Skin normal, no rash. Extremities: no clubbing, no edema. ? L umbar Spine/Lower Back: Palpation: diffuse tenderness throughout lumbar region, most particularly over lower lumbar facet joints. Spasms absent. Inspection: Spinal alignment no abnormal curvature noted.? Straight leg raising test: negative bilaterally. Sensory exam: s ensation intact to light touch throughout bilateral lower extremities, no edema or discoloration noted. Motor system: m otor strength 5/5 in all muscle groups bilaterally. Range of motion: R OM moderately limited, moderate pain induced. Hyperextension - Pain with Facet loading . Assessment: * Assessment: 1. O ther prison (current) drug therapy - Z79.899 (Primary) 2 . P ostlaminectomy syndrome, not elsewhere classified - M96.1 3 . R adiculopathy, lumbar region - M54.16 4 . Spondylosis without myelopathy or radiculopathy, lumbar region - M47.816 5 . S pondylosis without myelopathy or radiculopathy, cervical region - M47.812 6 . C arpal tunnel syndrome, bilateral upper limbs - G56.03 December 19, 2024: Review of history and previous note: Ms. Hanson is a 58-year-old lady who presents with a history of previous laminectomy and fusion in 2000 and she has a history of chronic lower back pain with numbness and tingling in her legs. No history of diabetes mellitus.. Continue to have low back pain, denies changes of character in pain. Pain medicine makes pain tolerable where she can continue to work. Patient is doing red light therapy twice a week for LBP. Patient reports that it does help relieve pain. She continues to take hydrocodone 10/325mg 3 times daily and gabapentin 600mg 3 times daily without any complaints related to medications or side effects. Babita and EDER reviewed. Continues to work full-time. Continues HEP. Home gym in her basement. December 19, 2024: Ms. Hanson presents today for follow-up and electrodiagnostic evaluation of both lower extremities. EMG/NCS was completed. The patient has pain in the lower back extending into both lower extremities. She has a history of lower back surgery in the past. No new problems today. I did review the urine drug screen that was negative for medications. I will send it off for definitive analysis. We will refill her medications for now and see her back in 2 months. No new problems otherwise today. 02/14/2025 The patient is a 59-year-old female presenting for follow-up regarding chronic pain management. She reports ongoing chronic lower back pain radiating into the right leg and down to the foot, following an L5-S1 dermatomal distribution. She also continues to experience chronic neck pain. Her pain history is significant for prior lumbar fusion at L4-L5. She describes her low back and right leg pain as constant, with sensations of aching, numbness, and tingling. Her current pain averages 3/10 in intensity and is exacerbated by immobility, while remaining physically active provides relief. She reports no significant interference with activities of daily living. She is currently managed on Hotchkiss 10/325 mg TID and Gabapentin 600 mg TID, which together provide approximately 80% relief for 3 hours. She denies any side effects from her prescribed regimen. The patient is compliant with her home exercise program (HEP). She has previously undergone interventional pain management, including radiofrequency ablation (RFA) above and below the fusion site at L3/L4 and L5/S1 on 01/23/2025, with symptom exacerbation noted on follow-up as of 02/14/2025. She reports better results in the past with lumbar medial branch blocks (LMBB) and expresses a preference for those if she considers intervention in the future. At this time, she declines any additional injection therapy. Electrodiagnostic testing (EMG/NCS) dated 12/19/2024 showed no acute or chronic changes but did confirm findings consistent with an old S1 radiculopathy. There were no signs of peripheral polyneuropathy, myopathy, or compression neuropathy. BABITA and urine drug screen (UDS) were reviewed and found to be compliant. Opioid risk assessment is moderate. Continue current opioid and adjunct therapy with Hotchkiss 10/325 mg TID and Gabapentin 600 mg TID. The patient will return for follow-up in two months or sooner as needed. If pain persists or worsens, reconsideration of LMBB or other interventional options may be discussed at that time. Plan: * Treatment: Value Reference Range H eroin Metabolite (6AM) NEG * A mphetamine (AMP) NEG * B enzodiazepine (RAYMOND) NEG * B uprenorphine NEG * C ocaine (LESIA) NEG * H ydrocodone (HYD) POS * M ethadone (MTD) NEG * O piate (OPI) POS * O xycodone (OXY) NEG * Talbot(MA-Avelino),Shila 01/28 9:06:42 AM >Keegan ([facility]) Glenna 02/14/2025 01:29:19 PM > Appropriate. Do not send for confirmation Notes: 02/14/2025 1. Refill GBP 600mg TID 2. Refill Hotchkiss 10/325mg TID 3. Continue Lumbar HEP 4. F/U 2 months 5. S/P5/RFA JEAN-PAUL L3/L4, L5/S1 ?? * Procedures: Jade SILVA ENCOUNTER AND OVERSIGHT: Consult Performed By: Le benjamin ([facility]), Glenna 02/18/2025 11:41:19 PM >. c ollaborated treatment plan with Debbie Plasencia M.D. , supervising physician who was present in office during consultation. E lectrodiagnostic evaluation was completed on Ms. ePrla Hanson today December 19, 2024 on both lower extremities and the findings are as follows: The details of the procedure were explained to the patient and verbal consent was obtained for EMG/NCS evaluation to be completed. For further details of the procedure please refer to the EMG/NCS report. The patient's skin temperature was monitored. I used a sterile monopolar disposable needle for evaluation of the extremity with EMG. The findings were reviewed and discussed with the patient. For detailed findings please refer to the note below or the EMG/NCS report. The findings were discussed with the patient and pathophysiology explained. The findings and the final report were made available to the referring physician/care provider who will determine further treatment/therapy as needed. Examination was completed on both lower extremities. The patient has no evidence of muscle wasting or atrophy identified. Overall the strength in both lower extremities appears to be symmetric at 5/5 throughout the muscle groups extending from L1- S2. There is no evidence of peripheral edema present or signs of ischemia in the lower extremities. Sensation is grossly intact and the patient appears to be neurologically intact. Patella tendon reflex is 1 - 2+. There are no skin lesions or areas of tenderness present. Calves are soft and nontender to palpation. There are no areas of erythema present or signs of trauma. 1. The right peroneal motor study was borderline. The onset latency was normal at 6.0 but the amplitude distally was 2.0 with normal being greater than 2.5 mV. The nerve conduction velocity was normal. The proximal amplitude was 2.1 mV below the popliteal fossa and 2.0 at the popliteal fossa. The left peroneal motor study was thought to be within normal limits. 2. The bilateral tibial motor studies were within normal limits. 3. The bilateral superficial peroneal sensory studies show significant electrical interference. 4. The bilateral sural sensory studies were within normal limits 5. There was no response to the stimulation of the left tibial H reflex or the right tibial H reflex. 6. The EMG was completed on both lower extremities including the bilateral quadriceps, hamstring, anterior tibialis, posterior tibialis, peroneus longus, gastrocnemius, EDB muscles and these were essentially within normal limits. I saw no evidence of positive sharp waves of fibrillation potentials or giant waves or changes in recruitment pattern. No acute or chronic changes. Impression is my opinion that the patient has what appears to be an old S1 radiculopathy based on the lack of H reflexes. This is likely chronic in light of the normal EMG of both lower extremities. I saw nothing to suggest peripheral polyneuropathy or myopathy or compression neuropathy. The right peroneal motor finding was thought to be borderline. * Procedure Codes: 9 5886 MUSC TEST DONE W/N TEST COMP, 48678 MUSC TEST DONE W/N TEST COMP, 77541 NRV CNDJ TEST 9-10 STUDIES * Follow Up: 2 Months * * Electronically signed by Josh Allison ([employer] RENTAL CLERK-[facility]INO) on 02/18/2025 at 10:47 PM CDT Sign off status: Completed true * Provider: Debbie Plasencia II, M.D. Date: 0 02/14/2025 Generated for Carina thomas/Peña/Arnulfoitting on: 0 04/03/2025 06:21 AM CDT History and Physical Notes * HPI (History of Present Illness) Category Sub-Category Detail Notes Category Not es PAIN MANAGEMENT TREATMENT HISTORY SUMMARY OF INITIAL EVALUATION: 06/27/2019 - New patient consult referred by CPS due to clinic closing for continuing treatment of chronic pain. Pain onset unknown without incident. Most severe pain is her low back pain which is axial in nature. Hx of lumbar fusion (L4-L5) with Dr.James Lewis in 2000. Secondary pain generator is her neck pain. She states that the surgery helped with her leg neuropathy.Had a fall roughly one month ago resulting in RT knee pain. States she did not go to the doctor for further evaluation. She does not feel that she needs an xray of it. She is scheduled for a routine colonoscopy soon. Former of Dr.Anjam Quiñonez with hx of LESI in 07/2018, since then all radicular symtoms have subsided. We discussed more interventional methods which she continues to decline. IMAGING HISTORY: 03/15/2014- MRI THORACIC: Mild degenerative disc disease of the horacic spine from T5 to T12 with small right paracentral disc protrusion/herniation at T6/T7 and a tiny right foraminal disc protrusion at T10/11. 03/15/2014- MRI CERVICAL: Minimal degenerative disc diesease, C4-C5,C5-6 and C6-7 with very minimal bulging of the disc at C6/C7. No disc herniations. No neural impingement apparent 07/26/2018- MRI LUMBAR: :Postsurgerical changes at L4-L5 with artifact at that level from prior fusion. L3-L4 Bulging disc along with facet and ligamentum flavum hypertrophy. There is seveere bilateral lateral recess narrowing with moderate bilateral foraminal narrowing. There is canal stenosis at this level hypertrophy with moderate right and severe left-sided foraminal narrowing from facet hypertrophic changes. 11/30/2020- MRI RT KNEE: Small knee joint effusion otherwise negative mRI of the left knee. 11/30/2020 - MRI LUMBAR: There is normal alignment. Spinal cord ends at the L1 level. No extended herniated disc apparent. 06/08/2023 EMG/NCS BUE: This is an abnormal electrodiagnostic evaluation of both upper extremities. 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 The patient had motor and sensory involvement. I saw nothing to suggest a peripheral polyneuropathy or myopathy or radiculopathy in the upper extremities. PHYSICAL/AQUA THERAPY/DME/OT HER HISTORY: Physical therapy program completed. She is using heat with relief as of 04/17/2020. 2024- No therapies reported as of PERTINENT SURGICAL EVALUATIONS/SPECIALIST CONSULTS lumbar fusion (L4-L5) with Dr.James Lewis in 2000 PREVIOUS INJECTION\PROCEDURE HISTORY: 01/31/2020-#1 Jean-Paul LMBB L2, L3,L5, 95% relief for 1 month. 03/06/2020-#2 Jean-Paul LMBB L3, L5, 95% relief for 1 month 04/10/2020-#1 RT RFA L2,L3, L5, 98% with relief for 8 months 05/30/2020- #1 LT RFA L2,L3,L5 60% relief for 6 months 01/29/2021- RFA LT L2,L3,L5, 50% relief for 8 months 02/04/2021 RFA RT L2 L3 L5 85% relief for 8 months 02/19/2022 RFA JEAN-PAUL L2 L3 L5 80% relief for 6 months 11/14/2024 #1 LMBB JEAN-PAUL L2,L3,L5 80% relief for 2 months 12/05/2024 #1 LMBB JEAN-PAUL L2,L3,L4; 80% relief for 2 months 01/23/2025 RFA JEAN-PAUL L3/L4, L5/S1 above and below fusion ongoing as of PREVIOUS PAIN CLINIC CARE: Papi Quiñonez- [facility] clinic hx of DARIAN in 07/2018 COMPLIANCE RISK ASSESSMENT AND STRATIFICATION: RISK GROUP: MODERATE RISK Due to: Concominant use of the following medications: muscle relaxer. membrane stabilizer. benzodiazepine URINE DRUG TESTIN03/15/2024 Screen Ex pected Definitive Expected 05/12/2024 Screen Expected 07/07/2024 Screen Expected 09/01/2024 Screen Expected 10/24/2024; Definitive Expected 12/18/2024 Screen Unexpected(-),Definitive Expected, 02/14/2025 Screen Expected MONITORING: Morphine Equivalent (MME): 30 mg BABITA reviewed today and appropriate TESTING/RISK ASSESSMENTS ORT Score/Result: 0 TODAYS PAIN EVALUATION MEDICATION FOLLOW UP: The patient is currently prescribed Hotchkiss 10/325mg TID and GBP 600mg TID, which provides 80% relief of pain symptoms for 3 hours. The last dose was taken 02/14/2025. Denies any side effects CURRENT PAIN SYMPTOMS: Location of Worst Pain:: Low Back Right leg Pain Frequency:: constant, always Pain Description:: aching, numb, tinglin g Average Pain Score VAS:: 3 Pain Exacerbation:: no movement Pain Alleviation:: staying active, ADL/Quality of Life Interference:: nothi ng Examination Category Sub-Category Detail Notes Category Not es General Examination HEENT: unremarkable Neck, Thyroid : supple Heart: regular rate Extremities: no clubbing, no edouard a General Appearance: well-nourished indiv idual in no acute distress. The patient is alert and oriented and cooperative for evaluation Skin normal, no rash Neurologic Exam: Patient ambulates wi th an antalgic gait, pitched forward Nurse/Freight Tallier: Kaia Kendrick (MA-Lex) 02/14/2025 8:41:16 AM > Lumbar Spine/Lower Back Straight leg raising test: neg ative bilaterally Motor system: motor strength 5/5 i n all muscle groups bilaterally Sensory exam: sensation intact to light touch throughout bilateral lower extremities, no edema or discoloration noted Range of motion: ROM moderately limit ed, moderate pain induced. Hyperextension - Pain with Facet loading Inspection: Spinal alignment no abnormal curvature noted Palpation: diffuse tenderness t hroughout lumbar region, most particularly over lower lumbar facet joints. Spasms absent
--- NOTE | 2025-04-03 07:22 | CT_ITS ---
FINAL REPORT TECHNIQUE: Axial images were obtained from the lung apex to the mid abdomen by computed tomography. This study was performed with techniques to keep radiation doses as low as reasonably achievable (ALARA). Individualized dose reduction techniques using automated exposure control or adjustment of mA and/or kV according to the patient's size were employed. CLINICAL HISTORY: SCREENING CURRENT SMOKER 1PPD X44 YEARS FINDINGS: CHEST CT LOW DOSE CTDI vol (mGy): 2.90 DLP (mGy-cm): 96.38 There is no axillary adenopathy. There is no hilar or mediastinal adenopathy. The heart is normal in size. There is no pericardial or pleural effusion. There are multiple noncalcified nodules in the right lung. Small nodules in the periphery of the right middle lobe measure up to 5 mm well-seen on image 45 of series 4. There is a nodule in the anterior right lower lobe measuring up to 4 mm well-seen on image 35 of series 4. There is scarring in the lung bases. IMPRESSION: Pulmonary nodules as detailed above. Lung RADS category 2. Recommend 12 month follow-up low-dose chest CT. Reviewed, Interpreted and Dictated by Salvatore Padron MD Transcribed by Perla Oden Authenticated and [facility]
--- OUTSIDE RECORDS SUMMARY | 2025-04-03 07:22 | XMS_ITS | Patient Health Record ---
Author Organization [facility] Address [address] [place] [address] Care Team Providers Care Sales Assistant [employer] Name Role Phone Monsterrafaelzo TANDylan Unavailable John BUSTAMANTE -PCP, Pedro Unavailable Unavaila ble Kendall Rayo Unavailable [phone] Allergies No Known Allergies Results Component Value Reference Range Notes Urine Test ANALYZER Reviewed date:05/12/2024 09:26:58 AM Interpretation:+HYD+OPI Performing Lab: Notes/Report: +HYD+OPI Heroin Metabolite (6AM) NEG Amphetamine (AMP) NEG Benzodiazepine (RAYMOND) NEG Buprenorphine NEG Cocaine (LESIA) NEG Hydrocodone (HYD) POS Methadone (MTD) NEG Opiate (OPI) POS Oxycodone (OXY) NEG Urine Test ANALYZER Reviewed date:02/14/2025 12:30:28 PM Interpretation:+OPI +HYD Performing Lab: Notes/Report: +OPI +HYD Heroin Metabolite (6AM) NEG Amphetamine (AMP) NEG Benzodiazepine (RAYMOND) NEG Buprenorphine NEG Cocaine (LESIA) NEG Hydrocodone (HYD) POS Methadone (MTD) NEG Opiate (OPI) POS Oxycodone (OXY) NEG Urine Test ANALYZER Reviewed date:07/07/2024 02:16:46 PM Interpretation:+HYD+OPI Performing Lab: Notes/Report: +HYD+OPI Heroin Metabolite (6AM) NEG Amphetamine (AMP) NEG Benzodiazepine (RAYMOND) NEG Buprenorphine NEG Cocaine (LESIA) NEG Hydrocodone (HYD) POS Methadone (MTD) NEG Opiate (OPI) POS Oxycodone (OXY) NEG Urine Test ANALYZER Reviewed date:09/01/2024 12:07:06 PM Interpretation:+HYD+OPI Performing Lab: Notes/Report: +HYD+OPI Heroin Metabolite (6AM) NEG Amphetamine (AMP) NEG Benzodiazepine (RAYMOND) NEG Buprenorphine NEG Cocaine (LESIA) NEG Hydrocodone (HYD) POS Methadone (MTD) NEG Opiate (OPI) POS Oxycodone (OXY) NEG Urine Test ANALYZER Reviewed date:10/27/2024 09:00:55 AM Interpretation:+HYD +OPI Performing Lab: Notes/Report: +HYD +OPI Heroin Metabolite (6AM) NEG Amphetamine (AMP) NEG Benzodiazepine (RAYMOND) NEG Buprenorphine NEG Cocaine (LESIA) NEG Hydrocodone (HYD) POS Methadone (MTD) NEG Opiate (OPI) POS Oxycodone (OXY) NEG Urine Test ANALYZER Reviewed date:12/19/2024 08:33:08 AM Interpretation:ALL NEG Performing Lab: Notes/Report: ALL NEG Heroin Metabolite (6AM) NEG Amphetamine (AMP) NEG Benzodiazepine (RAYMOND) NEG Buprenorphine NEG Cocaine (LESIA) NEG Hydrocodone (HYD) NEG Methadone (MTD) NEG Opiate (OPI) NEG Oxycodone (OXY) NEG Reason For Referral No Information Medications Medication SIG (Take, Route, Frequency, Duration) [...] (OK TO FILL EARLY, ONLY IF CLOSED) 02/15/2025 Active Acetaminophen-Hydrocod one Bitartrate 325 mg-10 mg 1 tab(s) orally 3 times a day; Duration: 28 days January 2025 RX DO NOT FILL SOONER THAN 28 DAYS, (OK TO FILL EARLY, ONLY IF CLOSED) 02/15/2025 Active gabapentin 600 mg 1 cap(s) orally three times a day; Duration: 28 days DO NOT FILL SOONER THAN 28 DAYS, (OK TO FILL EARLY, ONLY IF CLOSED) 02/15/2025 Active Social History Tobacco Use: Social History Observation Description Date Details (start date - stop date) Current Smoker NA - NA Smoking-PQRS Question Answer Notes Are you a: current smoker Problems Problem Type SNOMED Code ICD Code Onset Dates Problem Status W/U Status Risk Notes Problem Chronic pain syndrome (155385602) Chronic pain syndrome (G89.4) Active confirmed Problem Lumbosacral spondylosis without myelopathy (34645924) Other spondylosis with radiculopathy, lumbar region (M47.26) Active confirmed Problem Cervical spondylosis without myelopathy (671938118) Spondylosis without myelopathy or radiculopathy, cervical region (M47.812) Active confirmed Problem Lumbosacral spondylosis without myelopathy (90104982) Spondylosis without myelopathy or radiculopathy, lumbar region (M47.816) Active confirmed Problem Lumbar radiculopathy (756755729) Radiculopathy, lumbar region (M54.16) Active confirmed Problem Post-laminectomy syndrome (26636299) Postlaminectomy syndrome, not elsewhere classified (M96.1) Active confirmed Problem High risk drug monitoring status (789986405) 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) Active confirmed Problem Long-term current use of drug therapy (902162720) Other jail (current) drug therapy (Z79.899) Active confirmed Problem Carpal tunnel syndrome (87138143) Carpal tunnel syndrome, bilateral upper limbs (G56.03) Active confirmed Vital Signs Heart Rate 77 /min 02/14/2025 Blood pressure diastolic 88 mm Hg 02/14/2025 Height 64 in 02/14/2025 Blood pressure systolic 139 mm Hg 02/14/2025 Weight 165 lbs 02/14/2025 BMI 28.32 kg/m2 02/14/2025 Encounters Encounter Location Date Provider Diagnosis [facility] [address] [place] [address] 05/12/2024 Dylan Plasencia Other jail (current) drug therapy Z79.899 ; Postlaminectomy syndrome, not elsewhere classified M96.1 ; Radiculopathy, lumbar region M54.16 ; Spondylosis without myelopathy or radiculopathy, lumbar region M47.816 ; Spondylosis without myelopathy or radiculopathy, cervical region M47.812 and Carpal tunnel syndrome, bilateral upper limbs G56.03 [facility] [address] [place] [address] 07/07/2024 Dylan Plasencia Other jail (current) drug therapy Z79.899 ; Postlaminectomy syndrome, not elsewhere classified M96.1 ; Radiculopathy, lumbar region M54.16 ; Spondylosis without myelopathy or radiculopathy, lumbar region M47.816 ; Spondylosis without myelopathy or radiculopathy, cervical region M47.812 and Carpal tunnel syndrome, bilateral upper limbs G56.03 [facility] [address] [place] [address] 09/01/2024 Dylan Plasencia Other manager intermediate (current) drug therapy Z79.899 ; Postlaminectomy syndrome, not elsewhere classified M96.1 ; Radiculopathy, lumbar region M54.16 ; Spondylosis without myelopathy or radiculopathy, lumbar region M47.816 ; Spondylosis without myelopathy or radiculopathy, cervical region M47.812 and Carpal tunnel syndrome, bilateral upper limbs G56.03 [facility] [address] [place] [address] 10/27/2024 Kendall Rayo Other manager intermediate (current) drug therapy Z79.899 ; Postlaminectomy syndrome, not elsewhere classified M96.1 ; Radiculopathy, lumbar region M54.16 ; Spondylosis without myelopathy or radiculopathy, lumbar region M47.816 ; Spondylosis without myelopathy or radiculopathy, cervical region M47.812 and Carpal tunnel syndrome, bilateral upper limbs G56.03 [facility] [address] [place] [address] 11/14/2024 Dylan Plasencia Other spondylosis wi th radiculopathy, lumbar region M47.26 [facility] [address] [place] [address] 12/05/2024 Dylan Plasencia Other spondylosis wi th radiculopathy, lumbar region M47.26 [facility] [address] [place] [address] 12/19/2024 Kendall Rayo Other manager intermediate (current) drug therapy Z79.899 ; Postlaminectomy syndrome, not elsewhere classified M96.1 ; Radiculopathy, lumbar region M54.16 ; Spondylosis without myelopathy or radiculopathy, lumbar region M47.816 ; Spondylosis without myelopathy or radiculopathy, cervical region M47.812 and Carpal tunnel syndrome, bilateral upper limbs G56.03 [facility] [address] [place] [address] 01/23/2025 Dylan Plasencia Other spondylosis wi th radiculopathy, lumbar region M47.26 [facility] [address] [place] [address] 02/14/2025 Dylan Plasencia Other manager intermediate (current) drug therapy Z79.899 ; Postlaminectomy syndrome, not elsewhere classified M96.1 ; Radiculopathy, lumbar region M54.16 ; Spondylosis without myelopathy or radiculopathy, lumbar region M47.816 ; Spondylosis without myelopathy or radiculopathy, cervical region M47.812 and Carpal tunnel syndrome, bilateral upper limbs G56.03 [facility] [address] [place] [address] 05/12/2024 Dylan Plasencia Other manager intermediate (current) drug therapy Z79.899 [facility] [address] [place] [address] 07/07/2024 Dylan Plasencia Other manager intermediate (current) drug therapy Z79.899 [facility] [address] [place] [address] 09/01/2024 Dylan Plasencia Other jail (current) drug therapy Z79.899 [facility] [address] [place] [address] 12/14/2024 Dylan Plasencia [facility] [address] [place] [address] 12/25/2024 Kendall Rayo Other manager intermediate (current) drug therapy Z79.899 [facility] [address] [place] [address] 02/14/2025 Dylan Plasencia Other jail (current) drug therapy Z79.899 Assessments Encounter Date Diagnosis (ICD Code) Assessment Notes Treatment Notes Treatment Clinical Notes Section Notes 07/07/2024 Other jail (current) drug therapy (ICD-10 - Z79.899) 09/01/2024 Other jail (current) drug therapy (ICD-10 - Z79.899) 09/01/2024 Postlaminectomy syndrome, not elsewhere classified (ICD-10 - M96.1) 09/01/2024 Ms. Linder is a 58-year-old lady who presents for follow up and medication refills. Continue to have low back pain, denies [...] Continues HEP. Home gym in her basement. Does walk daily at home when off. Follow up in 2 months 09/01/2024 Other manager intermediate (current) drug therapy (ICD-10 - Z79.899) 09/01/2024 1. Refill GBP 600mg TID 2. Refill [place] 10/325mg TID 3. Continue Lumbar HEP 4. F/U 2 months 09/01/2024 Ms. Linder is a 58-year-old lady who presents for follow up and medication refills. Continue to have low back pain, denies [...] Continues HEP. Home gym in her basement. Does walk daily at home when off. Follow up in 2 months 10/27/2024 Postlaminectomy syndrome, not elsewhere classified (ICD-10 - M96.1) October 27, 2024: The patient presents to the [facility] office in [facility] for an audiovisual-telemed icine visit. The patient was evaluated by the medical assistant ob gyn and a urine drug screen was obtained as well as vital signs. Portions of the physical examination were assisted by the medical assistant ob gyn during the audiovisual-telemed icine visit Review of history and previous note: Ms. Linder is a 58-year-old lady who presents with [...] Continues HEP. Home gym in her basement. October 27, 2024: Ms. Linder is a 59-year-old lady who returns for follow-up today with continued lower back pain that goes into her buttock bilaterally. The right side worse than the left. She has numbness and tingling in the right lower extremity down to the foot. She says that today the left lower extremity is unremarkable. She has had a laminectomy in the past around 2000. No history of diabetes mellitus or known peripheral polyneuropathy. She says that the numbness and tingling went away after her back surgery but subsequently returned. She has had injections in the past but not recently. We talked about treatment and we will schedule her for LMBB bilateral L2-L3 L5 x 2 followed by RFA if successful. These are the levels that were done previously. Will also schedule the patient for a bilateral lower extremity EMG to evaluate possible radiculopathy versus peripheral polyneuropathy. Will also refill the patient's medications for now. 10/27/2024 Other jail (current) drug therapy (ICD-10 - Z79.899) [facility] 2024 1. Refill GBP 600mg TID 2. Refill [place] 10/325mg TID 3. Continue Lumbar HEP 4. F/U 2 months 5. Schedule EMG/BLE 6. Schedule #1 LMBB BUD L2,L3,L5 October 27, 2024: The patient presents to the [facility] office in [facility] for an audiovisual-telemed icine visit. The patient was evaluated by the medical assistant ob gyn and a urine drug screen was obtained as well as vital signs. Portions of the physical examination were assisted by the medical assistant ob gyn during the audiovisual-telemed icine visit Review of history and previous note: Ms. Linder is a 58-year-old lady who presents with [...] Continues HEP. Home gym in her basement. October 27, 2024: Ms. Linder is a 59-year-old lady who returns for follow-up today with continued lower back pain that goes into her buttock bilaterally. The right side worse than the left. She has numbness and tingling in the right lower extremity down to the foot. She says that today the left lower extremity is unremarkable. She has had a laminectomy in the past around 2000. No history of diabetes mellitus or known peripheral polyneuropathy. She says that the numbness and tingling went away after her back surgery but subsequently returned. She has had injections in the past but not recently. We talked about treatment and we will schedule her for LMBB bilateral L2-L3 L5 x 2 followed by RFA if successful. These are the levels that were done previously. Will also schedule the patient for a bilateral lower extremity EMG to evaluate possible radiculopathy versus peripheral polyneuropathy. Will also refill the patient's medications for now. 07/07/2024 Postlaminectomy syndrome, not elsewhere classified (ICD-10 - M96.1) 07/07/2024 Ms. Linder is a 58-year-old lady who presents for follow up and medication refills. Continue to have low back pain, denies changes of character in pain. Pain medicine makes pain tolerable where she can continue to work. Patient is doing red light therapy for LBP. Patient reports that it does help relieve pain. She continues to take hydrocodone 10/325mg 3 times daily and gabapentin 600mg 3 times daily without any complaints related to medications or side effects. Babita and EDER reviewed. 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 Continues HEP. Home gym in her basement. Does walk daily at home when off. Follow up in 2 months 07/07/2024 Other manager intermediate (current) drug therapy (ICD-10 - Z79.899) 07/07/2024 1. Refill GBP 600mg TID 2. Refill [place] 10/325mg TID 3. Continue Lumbar HEP 4. F/U 2 months 07/07/2024 Ms. Linder is a 58-year-old lady who presents for follow up and medication refills. Continue to have low back pain, denies changes of character in pain. Pain medicine makes pain tolerable where she can continue to work. Patient is doing red light therapy for LBP. Patient reports that it does help relieve pain. She continues to take hydrocodone 10/325mg 3 times daily and gabapentin 600mg 3 times daily without any complaints related to medications or side effects. Babita and JULIANNS reviewed. 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 Continues HEP. Home gym in her basement. Does walk daily at home when off. Follow up in 2 months 05/12/2024 Other jail (current) drug therapy (ICD-10 - Z79.899) 05/12/2024 Postlaminectomy syndrome, not elsewhere classified (ICD-10 - M96.1) 05/12/2024 Ms. Linder is a 58-year-old lady who presents for follow up and medication refills. Fully healed from CTS in August. Continue to have low back pain, denies changes of character in pain. Pain medicine makes pain tolerable where she can continue to work. She continues to take hydrocodone 10/325mg 3 times daily and gabapentin 600mg 3 times daily without any complaints related to medications or side effects. Babita and EDER reviewed. 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 Continues HEP. Home gym in her basement. Does walk daily at home when off. Follow up in 2 months 05/12/2024 Other jail (current) drug therapy (ICD-10 - Z79.899) 05/12/2024 1. Refill GBP 600mg TID 2. Refill [place] 10/325mg TID 3. Continue Lumbar HEP 4. F/U 2 months 05/12/2024 Ms. Linder is a 58-year-old lady who presents for follow up and medication refills. Fully healed from CTS in August. Continue to have low back pain, denies changes of character in pain. Pain medicine makes pain tolerable where she can continue to work. She continues to take hydrocodone 10/325mg 3 times daily and gabapentin 600mg 3 times daily without any complaints related to medications or side effects. Babita and JULIANNS reviewed. 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 Continues HEP. Home gym in her basement. Does walk daily at home when off. Follow up in 2 months 02/14/2025 Other jail (current) drug therapy (ICD-10 - Z79.899) 01/23/2025 Other spondylosis with radiculopathy, lumbar region (ICD-10 - M47.26) 12/25/2024 Other manager intermediate (current) drug therapy (ICD-10 - Z79.899) 02/14/2025 Other manager intermediate (current) drug therapy (ICD-10 - Z79.899) 02/14/2025 1. Refill GBP 600mg TID 2. Refill [place] 10/325mg TID 3. Continue Lumbar HEP 4. F/U 2 months 5. S/P 01/23/2025 RFA BUD L3/L4, L5/S1 December 19, 2024: Review of history and previous note: Ms. Linder is a 58-year-old lady who presents with [...] in her basement. December 19, 2024: Ms. Linder presents today for follow-up and electrodiagnostic evaluation [...] daily living. She is currently managed on [place] 10/325 mg TID and Gabapentin 600 mg [...] Continue current opioid and adjunct therapy with [place] 10/325 mg TID and Gabapentin 600 mg TID. The patient will return for follow-up in two months or sooner as needed. If pain persists or worsens, reconsideration of LMBB or other interventional options may be discussed at that time. 12/19/2024 Postlaminectomy syndrome, not elsewhere classified (ICD-10 - M96.1) December 19, 2024: Review of history and previous note: Ms. Linder is a 58-year-old lady who presents with [...] in her basement. December 19, 2024: Ms. Linder presents today for follow-up and electrodiagnostic evaluation [...] 2 months. No new problems otherwise today. 12/19/2024 Other manager intermediate (current) drug therapy (ICD-10 - Z79.899) Febuary 2024 1. Refill GBP 600mg TID 2. Refill [place] 10/325mg TID 3. Continue Lumbar HEP 4. F/U 2 months 5. Schedule EMG/BLE 6. Schedule #1 LMBB BUD L2,L3,L5 December 19, 2024: Review of history and previous note: Ms. Linder is a 58-year-old lady who presents with [...] in her basement. December 19, 2024: Ms. Linder presents today for follow-up and electrodiagnostic evaluation [...] 2 months. No new problems otherwise today. 12/05/2024 Other spondylosis with radiculopathy, lumbar region (ICD-10 - M47.26) 11/14/2024 Other spondylosis with radiculopathy, lumbar region (ICD-10 - M47.26) 12/19/2024 Radiculopathy, lumbar region (ICD-10 - M54.16) December 19, 2024: Review of history and previous note: Ms. Linder is a 58-year-old lady who presents with [...] in her basement. December 19, 2024: Ms. Linder presents today for follow-up and electrodiagnostic evaluation [...] months. No new problems otherwise today. 02/14/2025 Postlaminectomy syndrome, not elsewhere classified (ICD-10 - M96.1) December 19, 2024: Review of history and previous note: Ms. Linder is a 58-year-old lady who presents with [...] complaints related to medications or side effects. Jerry reviewed. Continues to work full-time. Continues HEP. Home gym in her basement. December 19, 2024: Ms. Linder presents today for follow-up and electrodiagnostic evaluation [...] daily living. She is currently managed on [place] 10/325 mg TID and Gabapentin 600 mg [...] Continue current opioid and adjunct therapy with [place] 10/325 mg TID and Gabapentin 600 mg TID. The patient will return for follow-up in two months or sooner as needed. If pain persists or worsens, reconsideration of LMBB or other interventional options may be discussed at that time. 05/12/2024 Radiculopathy, lumbar region (ICD-10 - M54.16) 05/12/2024 Ms. Linder is a 58-year-old lady who presents for follow up and medication refills. Fully healed from CTS in August. Continue to have low back pain, denies changes of character in pain. Pain medicine makes pain tolerable where she can continue to work. She continues to take hydrocodone 10/325mg 3 times daily and gabapentin 600mg 3 times daily without any complaints related to medications or side effects. Babita and UDS reviewed. 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 Continues HEP. Home gym in her basement. Does walk daily at home when off. Follow up in 2 months 10/27/2024 Radiculopathy, lumbar region (ICD-10 - M54.16) October 27, 2024: The patient presents to the [facility] office in [facility] for an audiovisual-telemed icine visit. The patient was evaluated by the medical assistant ob gyn and a urine drug screen was obtained as well as vital signs. Portions of the physical examination were assisted by the medical assistant ob gyn during the audiovisual-telemed icine visit Review of history and previous note: Ms. Linder is a 58-year-old lady who presents with [...] Continues HEP. Home gym in her basement. October 27, 2024: Ms. Linder is a 59-year-old lady who returns for follow-up today with continued lower back pain that goes into her buttock bilaterally. The right side worse than the left. She has numbness and tingling in the right lower extremity down to the foot. She says that today the left lower extremity is unremarkable. She has had a laminectomy in the past around 2000. No history of diabetes mellitus or known peripheral polyneuropathy. She says that the numbness and tingling went away after her back surgery but subsequently returned. She has had injections in the past but not recently. We talked about treatment and we will schedule her for LMBB bilateral L2-L3 L5 x 2 followed by RFA if successful. These are the levels that were done previously. Will also schedule the patient for a bilateral lower extremity EMG to evaluate possible radiculopathy versus peripheral polyneuropathy. Will also refill the patient's medications for now. 07/07/2024 Radiculopathy, lumbar region (ICD-10 - M54.16) 07/07/2024 Ms. Linder is a 58-year-old lady who presents for follow up and medication refills. Continue to have low back pain, denies changes of character in pain. Pain medicine makes pain tolerable where she can continue to work. Patient is doing red light therapy for LBP. Patient reports that it does help relieve pain. She continues to take hydrocodone 10/325mg 3 times daily and gabapentin 600mg 3 times daily without any complaints related to medications or side effects. Babita and UDS reviewed. 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 Continues HEP. Home gym in her basement. Does walk daily at home when off. Follow up in 2 months 09/01/2024 Radiculopathy, lumbar region (ICD-10 - M54.16) 09/01/2024 Ms. Linder is a 58-year-old lady who presents for follow up and medication refills. Continue to have low back pain, denies [...] Continues HEP. Home gym in her basement. Does walk daily at home when off. Follow up in 2 months 09/01/2024 Spondylosis without myelopathy or radiculopathy, lumbar region (ICD-10 - M47.816) 09/01/2024 Ms. Linder is a 58-year-old lady who presents for follow up and medication refills. Continue to have low back pain, denies [...] Continues HEP. Home gym in her basement. Does walk daily at home when off. Follow up in 2 months 10/27/2024 Spondylosis without myelopathy or radiculopathy, lumbar region (ICD-10 - M47.816) October 27, 2024: The patient presents to the [facility] office in [facility] for an audiovisual-telemed icine visit. The patient was evaluated by the medical assistant ob gyn and a urine drug screen was obtained as well as vital signs. Portions of the physical examination were assisted by the medical assistant ob gyn during the audiovisual-telemed icine visit Review of history and previous note: Ms. Linder is a 58-year-old lady who presents with [...] Continues HEP. Home gym in her basement. October 27, 2024: Ms. Linder is a 59-year-old lady who returns for follow-up today with continued lower back pain that goes into her buttock bilaterally. The right side worse than the left. She has numbness and tingling in the right lower extremity down to the foot. She says that today the left lower extremity is unremarkable. She has had a laminectomy in the past around 2000. No history of diabetes mellitus or known peripheral polyneuropathy. She says that the numbness and tingling went away after her back surgery but subsequently returned. She has had injections in the past but not recently. We talked about treatment and we will schedule her for LMBB bilateral L2-L3 L5 x 2 followed by RFA if successful. These are the levels that were done previously. Will also schedule the patient for a bilateral lower extremity EMG to evaluate possible radiculopathy versus peripheral polyneuropathy. Will also refill the patient's medications for now. 07/07/2024 Spondylosis without myelopathy or radiculopathy, lumbar region (ICD-10 - M47.816) 07/07/2024 Ms. Linder is a 58-year-old lady who presents for follow up and medication refills. Continue to have low back pain, denies changes of character in pain. Pain medicine makes pain tolerable where she can continue to work. Patient is doing red light therapy for LBP. Patient reports that it does help relieve pain. She continues to take hydrocodone 10/325mg 3 times daily and gabapentin 600mg 3 times daily without any complaints related to medications or side effects. Babita and JULIANNS reviewed. 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 Continues HEP. Home gym in her basement. Does walk daily at home when off. Follow up in 2 months 05/12/2024 Spondylosis without myelopathy or radiculopathy, lumbar region (ICD-10 - M47.816) 05/12/2024 Ms. Linder is a 58-year-old lady who presents for follow up and medication refills. Fully healed from CTS in August. Continue to have low back pain, denies changes of character in pain. Pain medicine makes pain tolerable where she can continue to work. She continues to take hydrocodone 10/325mg 3 times daily and gabapentin 600mg 3 times daily without any complaints related to medications or side effects. Babita and UDS reviewed. 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 Continues HEP. Home gym in her basement. Does walk daily at home when off. Follow up in 2 months 02/14/2025 Radiculopathy, lumbar region (ICD-10 - M54.16) December 19, 2024: Review of history and previous note: Ms. Linder is a 58-year-old lady who presents with [...] in her basement. December 19, 2024: Ms. Linder presents today for follow-up and electrodiagnostic evaluation [...] daily living. She is currently managed on [place] 10/325 mg TID and Gabapentin 600 mg [...] Continue current opioid and adjunct therapy with [place] 10/325 mg TID and Gabapentin 600 mg TID. The patient will return for follow-up in two months or sooner as needed. If pain persists or worsens, reconsideration of LMBB or other interventional options may be discussed at that time. 12/19/2024 Spondylosis without myelopathy or radiculopathy, lumbar region (ICD-10 - M47.816) December 19, 2024: Review of history and previous note: Ms. Linder is a 58-year-old lady who presents with [...] in her basement. December 19, 2024: Ms. Linder presents today for follow-up and electrodiagnostic evaluation [...] 2 months. No new problems otherwise today. 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 Linder is a 58-year-old lady who presents with [...] in her basement. December 19, 2024: Ms. Linder presents today for follow-up and electrodiagnostic evaluation [...] months. No new problems otherwise today. 02/14/2025 Spondylosis without myelopathy or radiculopathy, lumbar region (ICD-10 - M47.816) December 19, 2024: Review of history and previous note: Ms. Linder is a 58-year-old lady who presents with [...] in her basement. December 19, 2024: Ms. Linder presents today for follow-up and electrodiagnostic evaluation [...] daily living. She is currently managed on [place] 10/325 mg TID and Gabapentin 600 mg [...] Continue current opioid and adjunct therapy with [place] 10/325 mg TID and Gabapentin 600 mg TID. The patient will return for follow-up in two months or sooner as needed. If pain persists or worsens, reconsideration of LMBB or other interventional options may be discussed at that time. 07/07/2024 Spondylosis without myelopathy or radiculopathy, cervical region (ICD-10 - M47.812) 07/07/2024 Ms. Linder is a 58-year-old lady who presents for follow up and medication refills. Continue to have low back pain, denies changes of character in pain. Pain medicine makes pain tolerable where she can continue to work. Patient is doing red light therapy for LBP. Patient reports that it does help relieve pain. She continues to take hydrocodone 10/325mg 3 times daily and gabapentin 600mg 3 times daily without any complaints related to medications or side effects. Babita and JULIANNS reviewed. 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 Continues HEP. Home gym in her basement. Does walk daily at home when off. 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 Linder is a 58-year-old lady who presents for follow up and medication refills. Fully healed from CTS in August. Continue to have low back pain, denies changes of character in pain. Pain medicine makes pain tolerable where she can continue to work. She continues to take hydrocodone 10/325mg 3 times daily and gabapentin 600mg 3 times daily without any complaints related to medications or side effects. Babita and JULIANNS reviewed. 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 Continues HEP. Home gym in her basement. Does walk daily at home when off. Follow up in 2 months 10/27/2024 Spondylosis without myelopathy or radiculopathy, cervical region (ICD-10 - M47.812) October 27, 2024: The patient presents to the [facility] office in [facility] for an audiovisual-telemed icine visit. The patient was evaluated by the medical assistant ob gyn and a urine drug screen was obtained as well as vital signs. Portions of the physical examination were assisted by the medical assistant ob gyn during the audiovisual-telemed icine visit Review of history and previous note: Ms. Linder is a 58-year-old lady who presents with [...] to medications or side effects. Babita and JULIANNS reviewed. Continues to work full-time. Continues HEP. Home gym in her basement. October 27, 2024: Ms. Linder is a 59-year-old lady who returns for follow-up today with continued lower back pain that goes into her buttock bilaterally. The right side worse than the left. She has numbness and tingling in the right lower extremity down to the foot. She says that today the left lower extremity is unremarkable. She has had a laminectomy in the past around 2000. No history of diabetes mellitus or known peripheral polyneuropathy. She says that the numbness and tingling went away after her back surgery but subsequently returned. She has had injections in the past but not recently. We talked about treatment and we will schedule her for LMBB bilateral L2-L3 L5 x 2 followed by RFA if successful. These are the levels that were done previously. Will also schedule the patient for a bilateral lower extremity EMG to evaluate possible radiculopathy versus peripheral polyneuropathy. Will also refill the patient's medications for now. 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 Linder is a 58-year-old lady who presents for follow up and medication refills. Continue to have low back pain, denies [...] Continues HEP. Home gym in her basement. Does walk daily at home when off. Follow up in 2 months 10/27/2024 Carpal tunnel syndrome, bilateral upper limbs (ICD-10 - G56.03) October 27, 2024: The patient presents to the [facility] office in [facility] for an audiovisual-telemed icine visit. The patient was evaluated by the medical assistant ob gyn and a urine drug screen was obtained as well as vital signs. Portions of the physical examination were assisted by the medical assistant ob gyn during the audiovisual-telemed icine visit Review of history and previous note: Ms. Linder is a 58-year-old lady who presents with [...] Continues HEP. Home gym in her basement. October 27, 2024: Ms. Linder is a 59-year-old lady who returns for follow-up today with continued lower back pain that goes into her buttock bilaterally. The right side worse than the left. She has numbness and tingling in the right lower extremity down to the foot. She says that today the left lower extremity is unremarkable. She has had a laminectomy in the past around 2000. No history of diabetes mellitus or known peripheral polyneuropathy. She says that the numbness and tingling went away after her back surgery but subsequently returned. She has had injections in the past but not recently. We talked about treatment and we will schedule her for LMBB bilateral L2-L3 L5 x 2 followed by RFA if successful. These are the levels that were done previously. Will also schedule the patient for a bilateral lower extremity EMG to evaluate possible radiculopathy versus peripheral polyneuropathy. Will also refill the patient's medications for now. 09/01/2024 Carpal tunnel syndrome, bilateral upper limbs (ICD-10 - G56.03) 09/01/2024 Ms. Linder is a 58-year-old lady who presents for follow up and medication refills. Continue to have low back pain, denies [...] to medications or side effects. Babita and JULIANNS reviewed. Continues to work full-time. Continues HEP. Home gym in her basement. Does walk daily at home when off. Follow up in 2 months 07/07/2024 Carpal tunnel syndrome, bilateral upper limbs (ICD-10 - G56.03) 07/07/2024 Ms. Linder is a 58-year-old lady who presents for follow up and medication refills. Continue to have low back pain, denies changes of character in pain. Pain medicine makes pain tolerable where she can continue to work. Patient is doing red light therapy for LBP. Patient reports that it does help relieve pain. She continues to take hydrocodone 10/325mg 3 times daily and gabapentin 600mg 3 times daily without any complaints related to medications or side effects. Babita and EDER reviewed. 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 Continues HEP. Home gym in her basement. Does walk daily at home when off. Follow up in 2 months 05/12/2024 Carpal tunnel syndrome, bilateral upper limbs (ICD-10 - G56.03) 05/12/2024 Ms. Linder is a 58-year-old lady who presents for follow up and medication refills. Fully healed from CTS in August. Continue to have low back pain, denies changes of character in pain. Pain medicine makes pain tolerable where she can continue to work. She continues to take hydrocodone 10/325mg 3 times daily and gabapentin 600mg 3 times daily without any complaints related to medications or side effects. Babita and UDS reviewed. 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 Continues HEP. Home gym in her basement. Does walk daily at home when off. 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 Linder is a 58-year-old lady who presents with [...] in her basement. December 19, 2024: Ms. Linder presents today for follow-up and electrodiagnostic evaluation [...] daily living. She is currently managed on [place] 10/325 mg TID and Gabapentin 600 mg [...] Continue current opioid and adjunct therapy with [place] 10/325 mg TID and Gabapentin 600 mg TID. The patient will return for follow-up in two months or sooner as needed. If pain persists or worsens, reconsideration of LMBB or other interventional options may be discussed at that time. 12/19/2024 Carpal tunnel syndrome, bilateral upper limbs (ICD-10 - G56.03) December 19, 2024: Review of history and previous note: Ms. Linder is a 58-year-old lady who presents with [...] in her basement. December 19, 2024: Ms. Linder presents today for follow-up and electrodiagnostic evaluation [...] months. No new problems otherwise today. 02/14/2025 Carpal tunnel syndrome, bilateral upper limbs (ICD-10 - G56.03) December 19, 2024: Review of history and previous note: Ms. Linder is a 58-year-old lady who presents with [...] in her basement. December 19, 2024: Ms. Linder presents today for follow-up and electrodiagnostic evaluation [...] daily living. She is currently managed on [place] 10/325 mg TID and Gabapentin 600 mg [...] Continue current opioid and adjunct therapy with [place] 10/325 mg TID and Gabapentin 600 mg TID. The patient will return for follow-up in two months or sooner as needed. If pain persists or worsens, reconsideration of LMBB or other interventional options may be discussed at that time. Plan Of Treatment Pending Test Test Name Order Date Urine Test LCMS Definitive 12/19/2024 Urine Test LCMS Definitive 10/13/2021 Urine Test LCMS Definitive 10/27/2024 Next Appt Details Provider Name:Dylan Jade pereyra, 04/13/2025 09:00:00 AM, [address], [facility] [address], [place], [address], Insurance Providers Payer Name Payer Address Payer Phone Subscriber Number Group Number Insured Name Patient Relationship to Insured Coverage Start Date Coverage End Date [employer] [address] [place] [address] [phone] [id number] Kailash Perla Self - patient is the insured 4 Medical (General) History Medical History History ICD Code Anxiety diagnosed 2014 managed by Thompson Lopez MD Reflux diagnosed 2009 managed by Pedro Lopez MD Hyperlipidemia diagnosed 2011 managed by Pedro Lopez MD Hypertension diagnosed 2011 managed by Cathy Lopez MD Surgical History Surgery Date(Month/Year) carpal tunnel LT by Dr. Radford at [facility] (o p) 09/28/20[address] carpal tunnel RT by Dr. Hogue at [facility] (o p) 09/14/2023 lumbar fusion (L4-L5) with Dr.James Lewis / [facility] / overnight stay 2000 DC/ [facility]/ (OP) 2002 Cyst removal-Lt [facility]/ [facility] / (OP) 1997 Hospitalization History Reason Date(Month/Year)
--- NOTE | 2025-04-03 07:23 | MM_ITS ---
PROCEDURE INFORMATION: Exam: MG Bilateral Screening 3D Mammography Exam date and time: 04/03/2025 7:30 AM Age: 59 years old Clinical indication: Screening mammogram TECHNIQUE: Imaging protocol: Bilateral Screening tomosynthesis and 2D mammography including computer-aided detection (CAD) when performed. COMPARISON: 1. MG MM DIG SCREENING MAMM BI W/CAD 03/31/2024 10:20 AM 2. MG DIG MAMM-SCREEN BUD 01/12/2019 8:39 AM 3. MG DMSB DIG MAMM-SCREEN BUD W/CAD 12/03/2016 9:31 AM 4. MG DMSB DIG MAMM-SCREEN BUD 11/08/2015 9:37 AM FINDINGS: MAMMOGRAPHY: Breast composition: There are scattered areas of fibroglandular density. Mass: None. Architectural distortion: No new or suspicious architectural distortion. Calcifications: No new or suspicious calcifications are present Asymmetric density: No new or suspicious asymmetric density is present Skin thickening: None. Axillary adenopathy: None. IMPRESSION: No mammographic evidence of malignancy. Recommend annual screening mammography unless otherwise clinically indicated. ASSESSMENT: BI-RADS category 1: Negative.
== END 2025-04-03 23:59 | disposition home or self-care (01) ==
LOC: RAD 07:20
PROVIDERS: PCP Physician Assistant; Visit Provider Physician Assistant
DX: Z12.31 Encounter for screening mammogram for malignant neoplasm of breast (principal); Z12.2 Encounter for screening for malignant neoplasm of respiratory organs; R92.323 Mammographic fibroglandular density, bilateral breasts; F17.210 Nicotine dependence, cigarettes, uncomplicated; R91.8 Other nonspecific abnormal finding of lung field
CPT/HCPCS: 71271; 77063; 77067